=== PATIENT | female | born 1940 | race Caucasian/White ===

== ENCOUNTER 2017-01-18 13:14 | Inpatient (IN) | payer MEDICARE, MEDICAID ==
--- NOTE | 2017-01-18 13:43 | ER Document Report ---
ED Medical Screen (RME) - General Chief Complaint: Shortness Of Breath Stated Complaint: DIFFICULTY BREATHING Notes: Patient is complaining of an increasing shortness of breath and fatigue over the past couple of days. She has a history of COPD and is on home O2 of 3 L/m. She's had some slight cough recently. No fevers. Her difficulty breathing increased today after being shopping at [employer] and walking a lot. Patient has noticed swelling in her left leg for the past several months. It is not been painful. She feels like it's more swollen now than it has been. Patient appears to be comfortable on oxygen at this time. Her heart rate is about 112 and irregular taken by me. TRAVEL OUTSIDE OF THE [place] IN LAST 30 DAYS: No - Related Data Allergies/Adverse Reactions: adhesive tape Allergy (Verified 01/18/17 13:21) Past Medical History - Past Medical History Cardiac Medical History: Reports: Hx Atrial Fibrillation, Hx Hypertension Pulmonary Medical History: Reports: Hx COPD Endocrine Medical History: Reports: Hx Hypothyroidism Renal/ Medical History: Denies: Hx Peritoneal Dialysis Malignancy Medical History: Reports: Hx Breast Cancer - Stage III Musculoskeltal Medical History: Reports Hx Arthritis - Rheumatoid Past Surgical History: Reports: Hx Hysterectomy, Hx Oral Surgery Physical Exam - Vital signs Vitals: Temp Pulse Resp BP Pulse Ox 98.4 F 59 L 34 H 195/88 H 90 L 01/18/17 13:21 01/18/17 13:21 01/18/17 13:21 01/18/17 13:21 01/18/17 13:21 Course - Vital Signs Vital signs: Temp Pulse Resp BP Pulse Ox 98.4 F 59 L 34 H 195/88 H 90 L 01/18/17 13:21 01/18/17 13:21 01/18/17 13:21 01/18/17 13:21 01/18/17 13:21 - Laboratory Result Diagrams: 01/18/17 13:55
[2017-01-18 14:35] LABS: ALANINE AMINOTRANSFERASE 44 U/L (9-52); ALBUMIN 4.5 g/dL (3.5-5.0); ALKALINE PHOSPHATASE 98 U/L (38-126); ANION GAP 12 (5-19); ASPARTATE AMINO TRANSFERASE 43 U/L (14-36); BILIRUBIN,DIRECT 0.1 mg/dL (0.0-0.4); BILIRUBIN,TOTAL 0.5 mg/dL (0.2-1.3); BLOOD UREA NITROGEN 17 mg/dL (7-20); CALCIUM 10.1 mg/dL (8.4-10.2); CARBON DIOXIDE 30 mmol/L (22-30); CHLORIDE 101 mmol/L (98-107); CREATINE KINASE 32 U/L (30-135); CREATININE RESULT 0.54 mg/dL (0.52-1.25); GLUCOSE 113 mg/dL (75-110); POTASSIUM 4.1 mmol/L (3.6-5.0); SODIUM 142.6 mmol/L (137-145); TOTAL PROTEIN 6.7 g/dL (6.3-8.2)
--- NOTE | 2017-01-18 14:50 | ER Document Report ---
ED Respiratory Problem - General Mode of Arrival: Ambulatory Information source: Patient TRAVEL OUTSIDE OF THE [place] IN LAST 30 DAYS: No - HPI Patient complains to provider of: Cough, Short of breath. No: Chest pain Onset: Other - "couple days ago" Context: Hx COPD - oxygen dependent At home treatment: Inhaled steroids, Oral steroids, Oxygen - 3L Associated symptoms: Other - see notes above <AMINA HAYES - Last Filed: 01/18/17 18:21> <GUZMAN WILLOUGHBY - Last Filed: 01/18/17 22:43> - General Chief Complaint: Shortness Of Breath Stated Complaint: DIFFICULTY BREATHING Notes: 76 year old female with history of oxygen dependent (3L) COPD and pneumonia presents to the ED complaining of shortness of breath that started a "couple days ago." Patient additionally complains of a cough and left leg swelling ( "past few months"), and denies any fever or chest pain. Patient reports that she is increasingly short of breath with exertion. Patient is on Levothyroxine, Spiriva, Lasix, and hydrocortisone. Patient's apartment leasing specialist is Dr. Pond. Patient states that she is in mild shortness of breath and is weak currently. Patient is also requesting that her left leg be checked for possible blood clots. (AMINA HAYES) - Related Data Allergies/Adverse Reactions: adhesive tape Allergy (Verified 01/18/17 13:21) Home Medications: Current Home Medications Albuterol Sulfate [Proair HFA] 2 puff IH Q6HP PRN 01/18/17 [History] Furosemide [Furosemide] 20 mg PO DAILY 01/18/17 [History] Hydrocortisone [Hydrocortisone] 5 mg PO DAILY@1500 01/18/17 [History] Hydrocortisone [Hydrocortisone] 10 mg PO QAM 01/18/17 [History] Levothyroxine Sodium [Synthroid] 300 mcg PO DAILY 01/18/17 [History] Liothyronine Sodium 5 mcg PO DAILY 01/18/17 [History] Potassium Chloride 10 meq PO DAILY 01/18/17 [History] Tiotropium [address] [Spiriva Respimat] 2 puff IH DAILY 01/18/17 [History] Past Medical History - General Information source: Patient - Social History Smoking Status: Unknown if Ever Smoked Family History: Reviewed & Not Pertinent Patient has suicidal ideation: No Patient has homicidal ideation: No - Past Medical History Cardiac Medical History: Reports: Hx Atrial Fibrillation, Hx Hypertension Pulmonary Medical History: Reports: Hx COPD, Hx Pneumonia Endocrine Medical History: Reports: Hx Hypothyroidism Renal/ Medical History: Denies: Hx Peritoneal Dialysis Malignancy Medical History: Reports: Hx Breast Cancer - Stage III Musculoskeltal Medical History: Reports Hx Arthritis - Rheumatoid Past Surgical History: Reports: Hx Hysterectomy, Hx Oral Surgery <AMINA HAYES - Last Filed: 01/18/17 18:21> Review of Systems - Review of Systems Constitutional: See HPI, Weakness. denies: Fever EENT: No symptoms reported Cardiovascular: No symptoms reported. denies: Chest pain Respiratory: See HPI, Cough, Short of breath Gastrointestinal: No symptoms reported Genitourinary: No symptoms reported Female Genitourinary: No symptoms reported Musculoskeletal: See HPI, Leg swelling - left Skin: No symptoms reported Hematologic/Lymphatic: No symptoms reported Neurological/Psychological: No symptoms reported -: Yes All other systems reviewed and negative <AMINA HAYES - Last Filed: 01/18/17 18:21> Physical Exam - General General appearance: Alert In distress: None - HEENT Head: Normocephalic, Atraumatic Eyes: Normal Extraocular movements intact: Yes Pupils: PERRL - Respiratory Respiratory status: No respiratory distress Breath sounds: Decreased air movement - bilaterally, Wheezing - expiratory wheeze bilaterally. No: Normal - Cardiovascular Rhythm: Regular Heart sounds: Normal auscultation - Abdominal Inspection: Normal Distension: No distension Tenderness: Nontender - Back Back: Normal - Extremities General upper extremity: Normal inspection, Normal ROM General lower extremity: Edema - 1+ pitting edema left lower extremity, Normal ROM. No: Normal inspection - Neurological Neuro grossly intact: Yes Cognition: Normal Orientation: AAOx4 Opal Coma Scale Eye Opening: Spontaneous Opal Coma Scale Verbal: Oriented Banks Coma Scale Motor: Obeys Commands Banks Coma Scale Total: 15 Speech: Normal - Psychological Associated symptoms: Normal affect, Normal mood - Skin Skin Temperature: Warm Skin Moisture: Dry Skin Color: Normal <AMINA HAYES - Last Filed: 01/18/17 18:21> Course - Laboratory Result Diagrams: 01/18/17 16:11 01/18/17 13:55 - Consults Dr. Altman Time consulted: 17:46 <AMINA HAYES - Last Filed: 01/18/17 18:21> - Laboratory Result Diagrams: 01/18/17 16:11 01/18/17 13:55 <GUZMAN WILLOUGHBY - Last Filed: 01/18/17 22:43> - Re-evaluation Re-evalutation: 01/18/17 Patient is a 76-year-old female who comes in with difficulty breathing. The patient has a history of COPD. She is on oxygen at home and has been using nebulizers. The patient has had increased dyspnea with exertion and leg swelling. The patient denies any chest pain. Patient has been given nebulizer treatments. Doppler of left lower extremity does not show any sign of clot. Patient does have an elevated BNP and she does have some crackles at her bases. Patient does not have an old echocardiogram to review. No acute changes on EKG. Troponin within normal limits. Patient will be referred to the hospital service for respiratory distress, COPD exacerbation, and possible new onset heart failure. Patient agrees with this plan. Stable at time of admission. Of note I have discussed placing the patient on BiPAP. Patient states that she is very claustrophobic and she does not want to be placed on BiPAP at this time. (GUZMAN WILLOUGHBY) - Vital Signs Vital signs: Temp Pulse Resp BP Pulse Ox 98.4 F 59 L 32 H 182/114 H 92 01/18/17 13:21 01/18/17 13:21 01/18/17 17:01 01/18/17 15:14 01/18/17 17:01 - Laboratory Laboratory results interpreted by me: 01/18/17 01/18/17 01/18/17 13:55 14:35 16:11 RBC 5.35 H RDW 15.4 H Glucose 113 H AST 43 H NT-Pro-B Natriuret Pep TSH Free T4 Urine Ascorbic Acid 40 H 01/18/17 01/18/17 16:11 16:11 RBC RDW Glucose AST NT-Pro-B Natriuret Pep 2390 H TSH < 0.02 L Free T4 3.08 H Urine Ascorbic Acid - Consults Dr. Altman Reason for consultation: 01/18/17 17:46 Patient was discussed with Dr. Altman and agrees to admit the patient. (AMINA HAYES) Critical Care Note - Critical Care Note Total time excluding time spent on procedures (mins): 45 - evaluation and management of respiratory distress, multiple re-evaluations, coordination of admission, multiple re-evaluations, counseling of patient <GUZMAN WILLOUGHBY - Last Filed: 01/18/17 22:43> Discharge <AMINA HAYES - Last Filed: 01/18/17 18:21> - Discharge Admitting Provider: [facility] Admitted: [facility] <GUZMAN WILLOUGHBY - Last Filed: 01/18/17 22:43> - Discharge Clinical Impression: COPD exacerbation, Hypoxemia Condition: Stable Disposition: ADMITTED INPATIENT Scribe Attestation: 01/18/17 22:43 I personally performed the services described in the documentation, reviewed and edited the documentation which was dictated to the scribe in my presence, and it accurately records my words and actions. (GUZMAN WILLOUGHBY) Scribe Documentation - Scribe Written by Rocky:: Rocky Shah, 01/18/2017 1521 acting as scribe for :: Parth <AMINA HAYES - Last Filed: 01/18/17 18:21>
[2017-01-18] MEDS ORDERED: IPRATROPIUM/ALBUTEROL 0.5-2.5 MG/3 ML AMPUL NEB ONE ×2 (14:51→17:48)
[2017-01-18] MEDS ORDERED: METHYLPREDNISOLONE INJ 125 MG/2 ML SDV IV ONE (14:52)
[2017-01-18 16:23] LABS: ABSOLUTE BASOPHILS # (AUTO) 0.1 10^3/uL (0.0-0.2); ABSOLUTE EOSINOPHILS # (AUTO) 0.2 10^3/uL (0.0-0.6); ABSOLUTE LYMPHOCYTES (AUTO) 1.4 10^3/uL (0.5-4.7); ABSOLUTE MONOCYTES (AUTO) 0.6 10^3/uL (0.1-1.4); ABSOLUTE NEUT (AUTO) 5.6 10^3/uL (1.7-8.2); BASOPHILS % (AUTO) 0.9 % (0-2); EOSINOPHILS % (AUTO) 2.8 % (0-6); HEMOGLOBIN 14.4 g/dL (12.0-15.5); HGB HCT DIFFERENCE -0.8; LYMPHOCYTES % (AUTO) 17.8 % (13-45); MEAN CORPUSCULAR HGB CONC 32.8 g/dL (32.0-36.0); MEAN CORPUSCULAR VOLUME 82 fl (80-97); MONOCYTES % (AUTO) 7.4 % (3-13); RED BLOOD COUNT 5.35 10^6/uL (3.72-5.28); RED CELL DISTRIBUTION WIDTH 15.4 % (11.5-14.0); SEGMENTED NEUTROPHILS % (AUTO) 71.1 % (42-78); WHITE BLOOD COUNT 7.9 10^3/uL (4.0-10.5)
[2017-01-18 16:56] LABS: CREATINE KINASE MB 1.96 ng/mL (<4.55); TROPONIN I 0.018 ng/mL
[2017-01-18 17:41] LABS: APPEARANCE,URINE CLOUDY; BILIRUBIN,URINE NEGATIVE (NEGATIVE); GLUCOSE, URINE NEGATIVE (NEGATIVE); KETONES,URINE NEGATIVE (NEGATIVE); LEUKOCYTE ESTERASE,URINE NEGATIVE (NEGATIVE); NITRITE,URINE NEGATIVE (NEGATIVE); PROTEIN,URINE NEGATIVE (NEGATIVE); URINE SPECIFIC GRAVITY 1.009; UROBILINOGEN,URINE NEGATIVE mg/dL (<2.0)
[2017-01-18] MEDS ORDERED: ALPRAZOLAM 0.25 MG TABLET PO ONE (17:51)
[2017-01-18] MEDS: MAGNESIUM SULFATE/D5W 100 ML IV SCH ×2 (18:02→21:24)
[2017-01-18] MEDS ORDERED: ACETAMINOPHEN 325 MG TABLET PO PRN (18:33)
[2017-01-18] MEDS ORDERED: LEVALBUTEROL HCL NEB 1.25 MG/3 ML AMPUL NEB PRN (18:33)
[2017-01-18] MEDS ORDERED: ONDANSETRON HCL INJ/PF 4 MG/2 ML SDV IV PRN (18:39)
[2017-01-18] MEDS ORDERED: HYDRALAZINE HCL INJ/PF 20 MG/1 ML SDV IV PRN (18:43)
--- NOTE | 2017-01-18 19:12 | PDOC H&P ---
History of Present Illness Admission Date/PCP: LORIN GONZALEZ MD Patient complains of: Shortness of breath History of Present Illness: HARSH PATE is a 76 year old female, with chronic hypoxemic respiratory failure, on 3L nasal cannula oxygen at home, COPD, continues to smoke, presents to the hospital with increasing shortness of breath for the past 2 days. The patient has chronic shortness of breath on exertion especially on walking around her house at baseline. She uses home nebulizer and inhalers for her COPD. 4 to past 2-3 days she started to develop intermittent wheezing with associated cough productive of whitish phlegm and subsequent shortness of breath. There is no fever although at times there is mild headache. No sinus congestion or sore throat. Patient developed some chest tightness every time she had shortness of breath. Subsequently she started to develop shortness of breath at rest more and despite of that she went to the grocery where her symptoms got worse. No paroxysmal nocturnal dyspnea, and patient lays in bed on her side most of the time. She noted increasing swelling of her lower extremity as well for the past 2 months. In the emergency room the patient was given steroids and nebulizers, lower extremity venous Doppler was negative for DVT and the patient was referred for admission. Past Medical History Past Medical History: Medication reconciliation pending verifications from the patient's pharmacist Cardiac Medical History: Reports: Atrial Fibrillation, Hypertension Pulmonary Medical History: Reports: Chronic Obstructive Pulmonary Disease (COPD) , Pneumonia Endocrine Medical History: Reports: Hypothyroidism Malignancy Medical History: Reports: Breast Cancer - Stage III Musculoskeltal Medical History: Reports: Arthritis - Rheumatoid, Fibromyalgia Past Surgical History Past Surgical History: Reports: Hysterectomy Social History Information Source: Patient Smoking Status: Current Every Day Smoker Frequency of Alcohol Use: None Hx Recreational Drug Use: No Drugs: None Hx Prescription Drug Abuse: No Family History Family History: Hypertension Parental Family History Reviewed: Yes Children Family History Reviewed: Yes Sibling(s) Family History Reviewed.: Yes Medication/Allergy Home Medications: Devil's Claw Extract [Devil's Claw] 1 cap PO Q7D 06/05/15 Hydrochlorothiazide 1 tab PO DAILY 06/05/15 Levocarnitine Tartrate [Carnitine] 2 cap PO DAILY 06/05/15 Levothyroxine Sodium 1 tab PO DAILY 06/05/15 Magnesium Oxide [Magnesium] 1 cap PO DAILY 06/05/15 Ubidecarenone [Co Q10] 1 cap PO DAILY 06/05/15 Albuterol Sulfate [Albuterol Sulfate 2.5mg/3 mL] 2.5 mg IH QID #30 ml 06/06/15 Doxycycline Hyclate [Vibramycin 100 mg Tablet] 100 mg PO Q12 #20 tablet Prednisone [Deltasone 20 mg Tablet] 20 mg PO BID #15 tablet 06/06/15 Tiotropium [place] [Spiriva Handihaler 18 mcg/dose (30 Dose)] 1 cap IH DAILY # 30 capsule 06/06/15 Budesonide [Pulmicort Neb 0.5 mg/2 ml Ampul] 0.5 mg NEB RTQ12 #60 ampul.neb Allergies/Adverse Reactions: adhesive tape Allergy (Verified 01/18/17 13:21) Review of Systems Constitutional: PRESENT: headache(s) - Occasional, weakness - Generalized. ABSENT: chills, fever(s), weight gain, weight loss Eyes: ABSENT: visual disturbances Ears: ABSENT: hearing changes Nose, Mouth, and Throat: ABSENT: mouth pain, sore throat Cardiovascular: PRESENT: chest pain - More of tightness during wheezing episode , edema - Chronic. ABSENT: dyspnea on exertion, orthropnea, palpitations Respiratory: PRESENT: cough, dyspnea, sputum. ABSENT: hemoptysis Gastrointestinal: ABSENT: abdominal pain, coffee ground emesis, constipation, diarrhea, hematemesis, hematochezia, melena, nausea, vomiting Genitourinary: ABSENT: difficulty urinating, dysuria, hematuria Musculoskeletal: ABSENT: joint swelling Integumentary: ABSENT: pruritus, rash, wounds Neurological: ABSENT: abnormal gait, abnormal speech, confusion, dizziness, focal weakness, syncope Psychiatric: ABSENT: anxiety, depression, homidical ideation, suicidal ideation Endocrine: ABSENT: cold intolerance, heat intolerance, polydipsia, polyuria Hematologic/Lymphatic: ABSENT: easy bleeding, easy bruising Physical Exam Vital Signs: Temp Pulse Resp BP Pulse Ox 98.4 F 59 L 32 H 182/114 H 92 01/18/17 13:21 01/18/17 13:21 01/18/17 17:01 01/18/17 15:14 01/18/17 17:01 Intake & Output 01/17/17 01/18/17 01/19/17 06:59 06:59 06:59 Weight 96.9 kg General appearance: PRESENT: cooperative, mild distress Head exam: PRESENT: atraumatic, normocephalic Eye exam: PRESENT: conjunctiva pink, EOMI, PERRLA - Sluggish. ABSENT: scleral icterus Ear exam: PRESENT: normal external ear exam. ABSENT: drainage Mouth exam: PRESENT: moist, neck supple, tongue midline Throat exam: ABSENT: post pharyngeal erythema, tonsillar erythema Neck exam: ABSENT: carotid bruit, JVD, lymphadenopathy, thyromegaly Respiratory exam: PRESENT: decreased breath sounds, rhonchi - few, wheezes - minimal. ABSENT: rales Cardiovascular exam: PRESENT: irregular rhythm, +S1, +S2. ABSENT: diastolic murmur, rubs, systolic murmur Pulses: PRESENT: normal dorsalis pedis pul Vascular exam: PRESENT: normal capillary refill GI/Abdominal exam: PRESENT: normal bowel sounds, soft. ABSENT: distended, guarding, mass, organolmegaly, rebound, tenderness Rectal exam: PRESENT: deferred Extremities exam: PRESENT: full ROM, +1 edema. ABSENT: calf tenderness, clubbing Neurological exam: PRESENT: alert, awake, oriented to person, oriented to place , oriented to time, oriented to situation Psychiatric exam: PRESENT: appropriate affect, normal mood. ABSENT: homicidal ideation, suicidal ideation Skin exam: PRESENT: dry, intact, warm. ABSENT: cyanosis, jaundice, rash Results Laboratory Results: 01/18/17 16:11 01/18/17 13:55 01/18/17 01/18/17 01/18/17 13:55 14:35 16:11 WBC 7.9 RBC 5.35 H Hgb 14.4 Hct 44.0 MCV 82 MCH 27.0 MCHC 32.8 RDW 15.4 H Plt Count 193 Seg Neutrophils % 71.1 Lymphocytes % 17.8 Monocytes % 7.4 Eosinophils % 2.8 Basophils % 0.9 Absolute Neutrophils 5.6 Absolute Lymphocytes 1.4 Absolute Monocytes 0.6 Absolute Eosinophils 0.2 Absolute Basophils 0.1 Sodium 142.6 Potassium 4.1 Chloride 101 Carbon Dioxide 30 Anion Gap 12 BUN 17 Creatinine 0.54 Est GFR ( Amer) > 60 Est GFR (Non-Af Amer) > 60 Glucose 113 H Calcium 10.1 Total Bilirubin 0.5 AST 43 H ALT 44 Alkaline Phosphatase 98 Total Protein 6.7 Albumin 4.5 Urine Color YELLOW Urine Appearance CLOUDY Urine pH 7.0 Ur Specific [place] 1.009 Urine Protein NEGATIVE Urine Glucose (UA) NEGATIVE Urine Ketones NEGATIVE Urine Blood NEGATIVE Urine Nitrite NEGATIVE Ur Leukocyte Esterase NEGATIVE Urine WBC (Auto) 0 Urine RBC (Auto) 0 01/18/17 01/18/17 13:55 16:11 Creatine Kinase 32 CK-MB (CK-2) 1.96 Troponin I 0.018 NT-Pro-B Natriuret Pep 2390 H Impressions: Chest X-Ray 01/18/17 13:52 IMPRESSION: COPD. No acute findings. Venous Doppler Study 01/18/17 13:52 IMPRESSION: NO EVIDENCE DVT OR SVT IN THE LEFT LEG. Assessment & Plan - Diagnosis (1) Acute on chronic respiratory failure with hypoxemia Is this a current diagnosis for this admission?: Yes (2) COPD exacerbation Is this a current diagnosis for this admission?: Yes (3) Hypertensive urgency Is this a current diagnosis for this admission?: Yes (4) Hypothyroidism (acquired) Is this a current diagnosis for this admission?: Yes (5) Lower extremity edema Qualifiers: Laterality: bilateral Qualified Code(s): R60.0 - Localized edema Is this a current diagnosis for this admission?: Yes (6) Fibromyalgia Is this a current diagnosis for this admission?: Yes (7) Osteoarthritis Qualifiers: Osteoarthritis location: unspecified site Osteoarthritis type: unspecified Qualified Code(s): M19.90 - Unspecified osteoarthritis, unspecified site Is this a current diagnosis for this admission?: Yes - Time Time Spent: 50 to 70 Minutes - Inpatient Certification Based on my medical assessment, after consideration of the patient's comorbidities, presenting symptoms, or acuity I expect that the services needed warrant INPATIENT care.: Yes I certify that my determination is in accordance with my understanding of Medicare's requirements for reasonable and necessary INPATIENT services [42 CFR 412.3e].: Yes Medical Necessity: Significant Comorbidiites Make Outpatient Treatment Too Risky , Need Close Monitoring Due to Risk of Patient Decompensation, Need For Continuous Telemetry Monitoring, Need for Nebulizer Therapy and Monitoring of Response, Risk of Complication if Not Cared For in Hospital Post Hospital Care: D/C Favor Maker Documentation - Plan Summary Plan Summary: The patient will be admitted to [facility]. She will be placed on supplemental oxygen , begin intravenous steroids and [id number] nebulizers. We are going to culture her sputum. In the meantime I will begin the patient on intravenous diuretic and obtain an echocardiogram. Nitroglycerin paste will be administered and as needed IV hydralazine for systolic blood pressure greater than 180. DVT prophylaxis with Lovenox will be placed. We will monitor electrolytes. Further testing depends on initial evaluation as outlined above.
[2017-01-18] MEDS ORDERED: NITROGLYCERIN 2% OINTMENT 1 GM PACKET TP ONE (19:30)
[2017-01-18 20:34] LABS: THYROID STIMULATING HORMONE < 0.02 uIU/mL (0.47-4.68)
[2017-01-18] MEDS: METHYLPREDNISOLONE INJ 125 MG/2 ML SDV IV SCH (21:25)
[2017-01-18] MEDS: IPRATROPIUM BROMIDE 0.02% NEB 0.5 MG/2.5 ML AMPUL NEB SCH (21:26)
[2017-01-18] MEDS: LEVALBUTEROL HCL NEB 1.25 MG/3 ML AMPUL NEB SCH (21:26)
[2017-01-18] MEDS: FUROSEMIDE INJ/PF 40 MG/4 ML SDV IV SCH (22:16)
[2017-01-18 22:34] LABS: CREATINE KINASE MB 2.75 ng/mL (<4.55); TROPONIN I 0.024 ng/mL
[2017-01-19] MEDS: IPRATROPIUM BROMIDE 0.02% NEB 0.5 MG/2.5 ML AMPUL NEB SCH ×5 (00:55→20:38)
[2017-01-19] MEDS: LEVALBUTEROL HCL NEB 1.25 MG/3 ML AMPUL NEB SCH ×5 (00:55→20:38)
[2017-01-19] MEDS: METHYLPREDNISOLONE INJ 125 MG/2 ML SDV IV SCH ×4 (03:40→21:22)
[2017-01-19 04:50] LABS: BLOOD UREA NITROGEN 14 mg/dL (7-20); CALCIUM 9.4 mg/dL (8.4-10.2); CARBON DIOXIDE 27 mmol/L (22-30); CHLORIDE 103 mmol/L (98-107); CREATININE RESULT 0.47 mg/dL (0.52-1.25); GLUCOSE 187 mg/dL (75-110)
[2017-01-19 04:51] LABS: ANION GAP 12 (5-19); CREATINE KINASE 33 U/L (30-135); SODIUM 142.1 mmol/L (137-145)
[2017-01-19 04:59] LABS: POTASSIUM 3.1 mmol/L (3.6-5.0)
[2017-01-19 05:03] LABS: CREATINE KINASE MB 2.65 ng/mL (<4.55); TROPONIN I 0.034 ng/mL
[2017-01-19] MEDS: NITROGLYCERIN 2% OINTMENT 1 GM PACKET TP SCH ×4 (05:49→17:20)
--- NOTE | 2017-01-19 06:19 | EKG REPORT ---
SEVERITY:- BORDERLINE ECG - SINUS TACHYCARDIA WITH FREQUENT APCs LEFT AXIS DEVIATION : Confirmed by: Leah Guerra 19-Jan-2017 06:18:58
[2017-01-19] MEDS: LANSOPRAZOLE 30 MG TAB.RAP.DR PO SCH (06:36)
[2017-01-19] MEDS ORDERED: LEVOTHYROXINE SODIUM 0.05 MG TABLET PO SCH (08:00)
[2017-01-19] MEDS: ASPIRIN 81 MG TABLET, CHEWABLE PO SCH (08:35)
[2017-01-19] MEDS: DOCUSATE SODIUM 100 MG CAPSULE PO SCH ×2 (08:36→17:20)
[2017-01-19] MEDS: FUROSEMIDE INJ/PF 40 MG/4 ML SDV IV SCH (08:37)
[2017-01-19] MEDS: ENOXAPARIN SODIUM INJ 40 MG/0.4 ML DISP.SYRIN SUBCUT SCH (08:38)
[2017-01-19] MEDS ORDERED: METOPROLOL TARTRATE PF/INJ 5 MG/5 ML SDV IV ONE (09:54)
[2017-01-19] MEDS ORDERED: BENZOCAINE/MENTHOL SORE THROAT LOZENGE BUCCAL PRN (11:09)
[2017-01-19 11:10] LABS: CREATINE KINASE MB 2.51 ng/mL (<4.55); TROPONIN I 0.034 ng/mL
--- NOTE | 2017-01-19 11:15 | PDOC PROGRESS REPORT ---
Subjective Progress Note for:: 01/19/17 Subjective:: Patient's shortness of breath is better. Coughing is less. Wheezing is less. Lower extremity edema is unchanged. Denies any chills or fever. Patient reportedly tachycardic on the monitor. Cardiac enzymes remain negative. Physical Exam Vital Signs: Temp Pulse Resp BP Pulse Ox 98.5 F 105 H 20 138/91 H 91 L 01/19/17 08:00 01/19/17 08:37 01/19/17 08:37 01/19/17 08:00 01/19/17 08:37 Intake & Output 01/18/17 01/19/17 01/20/17 06:59 06:59 06:59 Intake Total 10 Output Total 900 Balance -890 Weight 87 kg General appearance: PRESENT: no acute distress, obese Head exam: PRESENT: normocephalic Eye exam: PRESENT: EOMI Mouth exam: PRESENT: moist, neck supple Neck exam: ABSENT: JVD Respiratory exam: PRESENT: decreased breath sounds. ABSENT: rhonchi, wheezes Cardiovascular exam: PRESENT: RRR. ABSENT: gallop GI/Abdominal exam: PRESENT: normal bowel sounds, soft. ABSENT: tenderness Extremities exam: PRESENT: +1 edema Neurological exam: PRESENT: alert, awake, oriented to situation Skin exam: PRESENT: dry, warm. ABSENT: cyanosis Results Laboratory Results: 01/19/17 04:15 01/19/17 04:15 Sodium 142.1 Potassium 3.1 L D Chloride 103 Carbon Dioxide 27 Anion Gap 12 BUN 14 Creatinine 0.47 L Est GFR ( Amer) > 60 Est GFR (Non-Af Amer) > 60 Glucose 187 H Calcium 9.4 01/18/17 01/19/17 01/19/17 22:00 04:15 04:15 Creatine Kinase 33 CK-MB (CK-2) 2.75 2.65 Troponin I 0.024 0.034 01/19/17 10:15 Creatine Kinase 31 CK-MB (CK-2) Troponin I Impressions: Chest X-Ray 01/18/17 13:52 IMPRESSION: COPD. No acute findings. Venous Doppler Study 01/18/17 13:52 IMPRESSION: NO EVIDENCE DVT OR SVT IN THE LEFT LEG. Assessment & Plan - Diagnosis (1) Acute on chronic respiratory failure with hypoxemia Is this a current diagnosis for this admission?: Yes (2) COPD exacerbation Is this a current diagnosis for this admission?: Yes (3) Hypertensive urgency Is this a current diagnosis for this admission?: Yes (4) Hypothyroidism (acquired) Is this a current diagnosis for this admission?: Yes (5) Lower extremity edema Qualifiers: Laterality: bilateral Qualified Code(s): R60.0 - Localized edema Is this a current diagnosis for this admission?: Yes (6) Fibromyalgia Is this a current diagnosis for this admission?: Yes (7) Osteoarthritis Qualifiers: Osteoarthritis location: unspecified site Osteoarthritis type: unspecified Qualified Code(s): M19.90 - Unspecified osteoarthritis, unspecified site Is this a current diagnosis for this admission?: Yes - Time Time Spent with patient: 25-34 minutes - Plan Summary Plan Summary: We are going to begin beta ángel with metoprolol. Decrease dose of Synthroid. Replace electrolytes and monitor. Continue steroids, decrease Atrovent, and Xopenex dose. Continue to monitor. Continue supportive care.
[2017-01-19] MEDS: POTASSIUM CHLORIDE 10 MEQ TABLET.SA PO SCH ×2 (13:31→17:21)
[2017-01-19] MEDS: METOPROLOL TARTRATE 25 MG TABLET PO SCH ×2 (13:32→17:18)
[2017-01-20] MEDS: METOPROLOL TARTRATE 25 MG TABLET PO SCH ×3 (01:09→18:00)
[2017-01-20] MEDS: NITROGLYCERIN 2% OINTMENT 1 GM PACKET TP SCH ×4 (01:11→17:57)
[2017-01-20] MEDS: IPRATROPIUM BROMIDE 0.02% NEB 0.5 MG/2.5 ML AMPUL NEB SCH ×4 (02:24→20:45)
[2017-01-20] MEDS: LEVALBUTEROL HCL NEB 1.25 MG/3 ML AMPUL NEB SCH ×4 (02:24→20:45)
[2017-01-20] MEDS: METHYLPREDNISOLONE INJ 125 MG/2 ML SDV IV SCH ×2 (05:51→08:42)
[2017-01-20] MEDS: LANSOPRAZOLE 30 MG TAB.RAP.DR PO SCH (05:51)
[2017-01-20 06:24] LABS: ANION GAP 10 (5-19); BLOOD UREA NITROGEN 32 mg/dL (7-20); CALCIUM 9.4 mg/dL (8.4-10.2); CARBON DIOXIDE 28 mmol/L (22-30); CHLORIDE 102 mmol/L (98-107); CREATININE RESULT 0.57 mg/dL (0.52-1.25); GLUCOSE 141 mg/dL (75-110); POTASSIUM 3.9 mmol/L (3.6-5.0); SODIUM 140.3 mmol/L (137-145)
[2017-01-20] MEDS: ENOXAPARIN SODIUM INJ 40 MG/0.4 ML DISP.SYRIN SUBCUT SCH (08:43)
[2017-01-20] MEDS: ASPIRIN 81 MG TABLET, CHEWABLE PO SCH (08:43)
[2017-01-20] MEDS: LEVOTHYROXINE SODIUM 0.025 MG TABLET PO SCH (08:43)
[2017-01-20] MEDS: DOCUSATE SODIUM 100 MG CAPSULE PO SCH ×2 (08:43→17:57)
[2017-01-20] MEDS ORDERED: FUROSEMIDE INJ/PF 40 MG/4 ML SDV IV SCH (10:00)
--- NOTE | 2017-01-20 10:30 | PDOC PROGRESS REPORT ---
Subjective Progress Note for:: 01/20/17 Subjective:: Patient clinically improved today. Able to ambulate without significant shortness of breath now. Will have intermittent tachycardia but better than presentation. No nausea or vomiting, no chest pain, no diarrhea chills nor fever. Physical Exam Vital Signs: Temp Pulse Resp BP Pulse Ox 98.1 F 79 16 139/88 H 98 01/20/17 07:40 01/20/17 08:33 01/20/17 08:33 01/20/17 07:40 01/20/17 08:33 Intake & Output 01/19/17 01/20/17 01/21/17 06:59 06:59 06:59 Intake Total 10 1194 Output Total 900 1400 Balance -890 -206 Weight 87 kg 85.7 kg General appearance: PRESENT: no acute distress, cooperative Head exam: PRESENT: normocephalic Eye exam: PRESENT: EOMI Mouth exam: PRESENT: moist, neck supple Neck exam: ABSENT: JVD Respiratory exam: PRESENT: clear to auscultation vikram. ABSENT: rhonchi, wheezes Cardiovascular exam: PRESENT: RRR. ABSENT: gallop GI/Abdominal exam: PRESENT: normal bowel sounds, soft. ABSENT: distended Extremities exam: PRESENT: +1 edema - Unchanged Neurological exam: PRESENT: alert, awake, oriented to situation Skin exam: PRESENT: dry, warm. ABSENT: cyanosis Results Laboratory Results: 01/20/17 05:34 01/20/17 05:34 Sodium 140.3 Potassium 3.9 Chloride 102 Carbon Dioxide 28 Anion Gap 10 BUN 32 H Creatinine 0.57 Est GFR ( Amer) > 60 Est GFR (Non-Af Amer) > 60 Glucose 141 H Calcium 9.4 01/18/17 01/19/17 01/19/17 22:00 04:15 04:15 Creatine Kinase 33 CK-MB (CK-2) 2.75 2.65 Troponin I 0.024 0.034 01/19/17 01/19/17 10:15 10:15 Creatine Kinase 31 CK-MB (CK-2) 2.51 Troponin I 0.034 Impressions: Chest X-Ray 01/18/17 13:52 IMPRESSION: COPD. No acute findings. Venous Doppler Study 01/18/17 13:52 IMPRESSION: NO EVIDENCE DVT OR SVT IN THE LEFT LEG. Assessment & Plan - Diagnosis (1) Acute on chronic respiratory failure with hypoxemia Is this a current diagnosis for this admission?: Yes (2) COPD exacerbation Is this a current diagnosis for this admission?: Yes (3) Hypertensive urgency Is this a current diagnosis for this admission?: Yes (4) Hypothyroidism (acquired) Is this a current diagnosis for this admission?: Yes (5) Lower extremity edema Qualifiers: Laterality: bilateral Qualified Code(s): R60.0 - Localized edema Is this a current diagnosis for this admission?: Yes (6) Fibromyalgia Is this a current diagnosis for this admission?: Yes (7) Osteoarthritis Qualifiers: Osteoarthritis location: unspecified site Osteoarthritis type: unspecified Qualified Code(s): M19.90 - Unspecified osteoarthritis, unspecified site Is this a current diagnosis for this admission?: Yes - Time Time Spent with patient: 15-24 minutes - Plan Summary Plan Summary: Continue bronchodilators. Discontinue IV Solu-Medrol. Begin oral prednisone. Discontinue intravenous Lasix. Begin Demadex. Awaiting echocardiogram. Continue supportive care. The patient is stable and improving the morning, we will discharge patient home.
[2017-01-20] MEDS ORDERED: TORSEMIDE 20 MG TABLET PO ONE (11:45)
[2017-01-20] MEDS: PREDNISONE 20 MG TABLET PO SCH (11:58)
[2017-01-20] MEDS ORDERED: METOPROLOL TARTRATE 50 MG TABLET ONE (17:57)
[2017-01-21] MEDS: NITROGLYCERIN 2% OINTMENT 1 GM PACKET TP SCH ×4 (00:39→18:18)
[2017-01-21] MEDS: IPRATROPIUM BROMIDE 0.02% NEB 0.5 MG/2.5 ML AMPUL NEB SCH ×3 (02:14→14:14)
[2017-01-21] MEDS: LEVALBUTEROL HCL NEB 1.25 MG/3 ML AMPUL NEB SCH ×3 (02:14→14:14)
[2017-01-21] MEDS: LANSOPRAZOLE 30 MG TAB.RAP.DR PO SCH (05:57)
[2017-01-21] MEDS ORDERED: TORSEMIDE 20 MG TABLET PO SCH (08:00)
[2017-01-21 09:10] LABS: AMORPHOUS SEDIMENT,URINE TRACE /HPF; APPEARANCE,URINE CLOUDY; BILIRUBIN,URINE NEGATIVE (NEGATIVE); GLUCOSE, URINE NEGATIVE (NEGATIVE); KETONES,URINE NEGATIVE (NEGATIVE); LEUKOCYTE ESTERASE,URINE LARGE (NEGATIVE); NITRITE,URINE NEGATIVE (NEGATIVE); PROTEIN,URINE 100 mg/dL (NEGATIVE); TRIPLE PHOSPHATE CRYSTAL,URINE TOO NUMEROUS TO CNT /HPF; UROBILINOGEN,URINE NEGATIVE mg/dL (<2.0)
[2017-01-21] MEDS: METOPROLOL TARTRATE 25 MG TABLET PO SCH (11:08)
[2017-01-21] MEDS: DOCUSATE SODIUM 100 MG CAPSULE PO SCH ×2 (11:09→18:18)
[2017-01-21] MEDS: PREDNISONE 20 MG TABLET PO SCH (11:09)
[2017-01-21] MEDS: LEVOTHYROXINE SODIUM 0.025 MG TABLET PO SCH (11:09)
[2017-01-21] MEDS: ASPIRIN 81 MG TABLET, CHEWABLE PO SCH (11:09)
[2017-01-21] MEDS: ENOXAPARIN SODIUM INJ 40 MG/0.4 ML DISP.SYRIN SUBCUT SCH (11:10)
--- NOTE | 2017-01-21 17:32 | PDOC DISCHARGE SUMMARY ---
General - Admit/Disc Date/PCP Admission Date/Primary Care Provider: 01/18/17 18:34 LORIN GONZALEZ MD Discharge Date: 01/21/17 - Discharge Diagnosis (1) Acute on chronic respiratory failure with hypoxemia Is this a current diagnosis for this admission?: Yes (2) COPD exacerbation Is this a current diagnosis for this admission?: Yes (3) Hypertensive urgency Is this a current diagnosis for this admission?: Yes (4) Hypothyroidism (acquired) Is this a current diagnosis for this admission?: Yes (5) Lower extremity edema Is this a current diagnosis for this admission?: Yes (6) Urinary tract infection Is this a current diagnosis for this admission?: Yes (7) Fibromyalgia Is this a current diagnosis for this admission?: Yes (8) Osteoarthritis Is this a current diagnosis for this admission?: Yes - Additional Information Discharge Diet: Cardiac - low-fat low-salt Discharge Activity: Activity As Tolerated, Balance Activity w/Rest, Slowly Increase Activity Home Medications: Albuterol Sulfate [Proair HFA] 2 puff IH Q6HP PRN 01/18/17 Hydrocortisone 5 mg PO DAILY@1500 01/18/17 Hydrocortisone 10 mg PO QAM 01/18/17 Potassium Chloride 10 meq PO DAILY 01/18/17 Tiotropium [place] [Spiriva Respimat] 2 puff IH DAILY 01/18/17 Aspirin [Aspirin 81 mg Chewable Tablet] 81 mg PO DAILY tab.chew 01/21/17 Levofloxacin [Levaquin 750 mg Tablet] 750 mg PO DAILY #7 tablet 01/21/17 Levothyroxine Sodium [Synthroid 0.025 mg Tablet] 0.025 mg PO QAM #30 tablet 07/30 Metoprolol Tartrate [Lopressor 25 mg Tablet] 50 mg PO Q12 #60 tablet 01/21/17 Torsemide [Demadex 20 mg Tablet] 10 mg PO QAM #30 tablet 01/21/17 Additional Information: Follow-up final report on urine culture as outpatient with primary care physician. History of Present Illness Patient complains of: Shortness of breath History of Present Illness: HARSH PATE is a 76 year old female, with chronic hypoxemic respiratory failure, on 3L nasal cannula oxygen at home, COPD, continues to smoke, presents to the hospital with increasing shortness of breath for the past 2 days. The patient has chronic shortness of breath on exertion especially on walking around her house at baseline. She uses home nebulizer and inhalers for her COPD. 4 to past 2-3 days she started to develop intermittent wheezing with associated cough productive of whitish phlegm and subsequent shortness of breath. There is no fever although at times there is mild headache. No sinus congestion or sore throat. Patient developed some chest tightness every time she had shortness of breath. Subsequently she started to develop shortness of breath at rest more and despite of that she went to the grocery where her symptoms got worse. No paroxysmal nocturnal dyspnea, and patient lays in bed on her side most of the time. She noted increasing swelling of her lower extremity as well for the past 2 months. In the emergency room the patient was given steroids and nebulizers, lower extremity venous Doppler was negative for DVT and the patient was referred for admission. Hospital Course Hospital Course: The patient was admitted to [facility]. She was started on intravenous steroids, [id number] nebulizers. Supplemental oxygen was given. She also complains of some chest tightness and serial cardiac enzymes were negative for myocardial infarction. EKG shows no acute ST-T wave changes. She was initially patient aspirin and likewise nitroglycerin . Patient significantly improved after the next day however she was tachycardic. She was placed on metoprolol for blood pressure control, as well as Demadex. Patient's lower extremity edema improved, heart rate likewise improved, blood pressure improved. Free T4 was noted to be elevated, therefore her supplemental Synthroid was decreased to half the dose. The patient subsequently improved, course was noted for abnormal urinalysis likely urinary tract infection, she was given antibiotics. Patient may have underlying bronchitis as well therefore she will continue the antibiotics for a week. She wanted to go home and discontinue treatment on an outpatient basis. She requests home health, supervisor public health nursing, and personal care services. She has chronic respiratory failure and is on home oxygen already. She was advised to return to the emergency room symptoms recur or worsens. She was advised to see her physician in one week. She likewise is on chronic steroids with hydrocortisone at home. Physical Exam Vital Signs: Temp Pulse Resp BP Pulse Ox 97.9 F 82 16 142/82 H 96 01/21/17 07:29 01/21/17 14:14 01/21/17 14:14 01/21/17 07:29 01/21/17 14:14 Intake & Output 01/20/17 01/21/17 01/22/17 06:59 06:59 06:59 Intake Total 1194 885 720 Output Total 1400 1600 Balance -206 -715 720 Weight 85.7 kg 86.1 kg General appearance: PRESENT: no acute distress, cooperative, other - Nasal cannula oxygen Head exam: PRESENT: normocephalic Eye exam: PRESENT: EOMI Mouth exam: PRESENT: moist, neck supple Neck exam: ABSENT: JVD Respiratory exam: PRESENT: decreased breath sounds. ABSENT: rhonchi, wheezes Cardiovascular exam: PRESENT: RRR. ABSENT: gallop GI/Abdominal exam: PRESENT: normal bowel sounds, soft. ABSENT: tenderness Extremities exam: PRESENT: +1 edema - Improved Neurological exam: PRESENT: alert, awake, oriented to person, oriented to place , oriented to time, oriented to situation Skin exam: PRESENT: dry, warm. ABSENT: cyanosis Results Laboratory Results: 01/20/17 05:34 01/21/17 08:30 Urine Color YELLOW Urine Appearance CLOUDY Urine pH 9.0 Ur Specific [place] 1.020 Urine Protein 100 H Urine Glucose (UA) NEGATIVE Urine Ketones NEGATIVE Urine Blood SMALL H Urine Nitrite NEGATIVE Ur Leukocyte Esterase LARGE H Urine WBC (Auto) 11 Urine RBC (Auto) 21 01/18/17 01/19/17 01/19/17 22:00 04:15 04:15 Creatine Kinase 33 CK-MB (CK-2) 2.75 2.65 Troponin I 0.024 0.034 01/19/17 01/19/17 10:15 10:15 Creatine Kinase 31 CK-MB (CK-2) 2.51 Troponin I 0.034 Impressions: Chest X-Ray 01/18/17 13:52 IMPRESSION: COPD. No acute findings. Venous Doppler Study 01/18/17 13:52 IMPRESSION: NO EVIDENCE DVT OR SVT IN THE LEFT LEG. Qualifiers PATEINT BEING DISCHARGED WITH ANY OF THE FOLLOWING DIAGNOSIS?: No Plan Discharge Plan: Follow-up with primary care physician in one week. Time Spent: Less than 30 Minutes
[2017-01-21] MEDS ORDERED: CEFTRIAXONE 1 GM/D5W RTU 1 GM/50 ML RTUPB IV ONE (18:30)
[2017-01-21 18:39] VITALS: BP 135/81
--- NOTE | 2017-01-22 13:16 | XCELERA REPORT ---
[address] [address] Transthoracic Echocardiogram Report Name: HARSH PATE Age: 76 yrs Gender: Female : 1940 Patient Status: Inpatient Patient Location: [id number]\S\334\S\A Study Date: 01/21/2017 09:34 AM Height: 61 in Weight: 213 lb BSA: 1.9 m2 Procedure: A two-dimensional transthoracic echocardiogram with color flow and Doppler was performed. Study Quality: Technically suboptimal. Reason For Study: CHF / PULMONARY HYPERTENSION History: CHF / PULMONARY HYPERTENSION. Ordering Physician: BLAYNE GARCIA Performed By: Priyanka Perez Interpretation Summary The left ventricle is normal in size. There is normal left ventricular wall thickness. LV EF is > than 60% Left ventricular systolic function is normal. Doppler measurements suggest impaired left ventricular relaxation, which is associated with grade I/IV or mild diastolic dysfunction The left ventricular wall motion is normal. There is no thrombus. The right ventricle is grossly normal size. The right ventricle is not well visualized secondary to technical limitations The left atrium is moderately dilated. There is no evidence of mitral valve prolapse. There is no mitral valve stenosis. Probably milld to moderate MR. There is no aortic valve stenosis There is no LVOT obstruction. No aortic regurgitation is present. There is no tricuspid stenosis. There is a trace amount of tricuspid regurgitation Right ventricular systolic pressure is normal. RVSP is normal at 26 mm of Hg , with RA mean of 5. There is no pericardial effusion. MMode/2D Measurements \T\ Calculations RVDd: 2.8 cm LVIDd: 4.5 cm FS: 35.7 % Ao root diam: 3.3 cm IVSd: 0.92 cm LVIDs: 2.9 cm EDV(Teich): 94.8 ml LVPWd: 0.98 cmESV(Teich): 32.9 ml Ao root area: 8.3 cm2 EF(Teich): 65.3 % LA dimension: 4.5 cm LVOT diam: 2.0 cm LVOT area: 3.0 cm2 Doppler Measurements \T\ Calculations MV E max antonio: MV P1/2t max antonio: Ao V2 max: LV V1 max P.0 cm/sec 74.0 cm/sec 129.2 cm/sec 3.9 mmHg MV A max antonio: MV P1/2t: 53.7 msec Ao max PG: LV V1 max: 88.4 cm/sec MVA(P1/2t): 4.1 cm2 6.7 mmHg 98.7 cm/sec MV E/A: 0.84 MV dec slope: POLLY(V,D): 2.3 cm2 404.1 cm/sec2 PA V2 max: TR max antonio: 54.8 cm/sec 226.9 cm/sec PA max PG: TR max P.6 mmHg 1.2 mmHg Left Ventricle The left ventricle is normal in size. There is normal left ventricular wall thickness. LV EF is > than 60%. Left ventricular systolic function is normal. Doppler measurements suggest impaired left ventricular relaxation, which is associated with grade I/IV or mild diastolic dysfunction. The left ventricular wall motion is normal. There is no thrombus. Right Ventricle The right ventricle is grossly normal size. The right ventricle is not well visualized secondary to technical limitations. Atria The right atrium is normal. The left atrium is moderately dilated. Mitral Valve There is mild mitral annular calcification. There is no evidence of mitral valve prolapse. There is no vegetation seen on the mitral valve. There is no mitral valve stenosis. Probably milld to moderate MR. Aortic Valve There is no aortic valvular vegetation. There is no aortic valve stenosis. There is no LVOT obstruction. No aortic regurgitation is present. Tricuspid Valve There is no tricuspid stenosis. There is a trace amount of tricuspid regurgitation. Right ventricular systolic pressure is normal. RVSP is normal at 26 mm of Hg , with RA mean of 5. Pulmonic Valve There is no pulmonic valvular stenosis. There is no pulmonic valvular regurgitation. Great Vessels The aortic root is not well visualized but is probably normal size. Effusions There is no pericardial effusion. : BLAYNE GARCIA > Nohemy Brenner
[2017-01-22] MEDS ORDERED: CEFTRIAXONE 1 GM/D5W RTU 1 GM/50 ML RTUPB IV SCH (18:00)
== END 2017-01-21 19:33 | disposition home or self-care (01) | DRG 190 ==
LOC: ER 13:14 → EH 18:34 → UNDOADMIN 20:38 → EH 20:38 → 3S 01-19 02:24
PROVIDERS: ADMIT Family Medicine; ATTEND Family Medicine
PROC: 3E0F73Z Introduction of Anti-inflammatory into Respiratory Tract, Via Natural or Artificial Opening (ICD-10-PCS; principal; 2017-01-18)
DX: J44.1 Chronic obstructive pulmonary disease with (acute) exacerbation (principal); J96.21 Acute and chronic respiratory failure with hypoxia; N39.0 Urinary tract infection, site not specified; I16.0 Hypertensive urgency; E03.9 Hypothyroidism, unspecified; M79.7 Fibromyalgia; M19.90 Unspecified osteoarthritis, unspecified site; F17.200 Nicotine dependence, unspecified, uncomplicated; M06.9 Rheumatoid arthritis, unspecified; I48.91 Unspecified atrial fibrillation; Z99.81 Dependence on supplemental oxygen; Z79.899 Other long term (current) drug therapy; Z79.52 Long term (current) use of systemic steroids; Z85.3 Personal history of malignant neoplasm of breast; Z90.710 Acquired absence of both cervix and uterus
CPT/HCPCS: 36415; 71020; 80048; 80053; 81001; 82550; 82553; 82962; 83880; 84439; 84443; 84484; 85025; 87086; 87088; 87186; 93005; 93010; 93306; 93971; 94640; 96365; 96375; 99291; J0696; J1650; J1940; J2930; J3475; J3490; J7512; J7620

== ENCOUNTER 2017-05-01 16:25 | Emergency (ER) | payer MEDICARE, MEDICAID ==
--- NOTE | 2017-05-01 18:21 | RADIOLOGY REPORT (SQ) ---
EXAM DESCRIPTION: CT HEAD WITHOUT COMPLETED DATE/TIME: 05/01/2017 6:09 pm REASON FOR STUDY: confusion, posterior pain COMPARISON: None. TECHNIQUE: Axial images acquired through the brain without intravenous contrast. Images reviewed wi th bone, brain and subdural windows. Images stored on PACS. All CT scanners at this facility use dose modulation, iterative reconstruction, and/or weight based d osing when appropriate to reduce radiation dose to as low as reasonably achievable (ALARA). [facility]: Dose Right [facility]: CareDose [facility]: Dose Right [facility]: Teradose 4D [facility]: Smart [employer] RADIATION DOSE: Up-to-date CT equipment and radiation dose reduction techniques were employed. CTDIv ol: 64.6 mGy. DLP: 1034 mGy-cm.mGy. LIMITATIONS: None. FINDINGS: VENTRICLES: Prominent. CEREBRUM: No masses. No hemorrhage. No midline shift. Areas of low density in the white matter mos t likely due to chronic micro-vascular ischemic change. No evidence for acute infarction. CEREBELLUM: No masses. No hemorrhage. No alteration of density. No evidence for acute infarction. EXTRAAXIAL SPACES: Age-related involutional change. No fluid collections. No masses. ORBITS AND GLOBE: No intra- or extraconal masses. Normal contour of globe without masses. CALVARIUM: No fracture. PARANASAL SINUSES: No fluid or mucosal thickening. SOFT TISSUES: No mass or hematoma. OTHER: No other significant finding. IMPRESSION: CHRONIC CHANGES OF ATROPHY AND MICROVASCULAR ISCHEMIA. NO ACUTE PROCESS. TECHNICAL DOCUMENTATION: JOB ID: [id number] Quality ID # [id number]: Final reports with documentation of one or more dose reduction techniques (e.g., Au tomated exposure control, adjustment of the mA and/or kV according to patient size, use of iterative reconstruction technique) 2010 [employer]- All Rights Reserved
[2017-05-01 18:24] LABS: ABSOLUTE BASOPHILS # (AUTO) 0.1 10^3/uL (0.0-0.2); ABSOLUTE EOSINOPHILS # (AUTO) 0.3 10^3/uL (0.0-0.6); ABSOLUTE LYMPHOCYTES (AUTO) 1.2 10^3/uL (0.5-4.7); ABSOLUTE MONOCYTES (AUTO) 0.4 10^3/uL (0.1-1.4); ABSOLUTE NEUT (AUTO) 4.8 10^3/uL (1.7-8.2); BASOPHILS % (AUTO) 1.3 % (0-2); EOSINOPHILS % (AUTO) 4.3 % (0-6); HEMATOCRIT 41.8 % (36.0-47.0); HEMOGLOBIN 13.7 g/dL (12.0-15.5); HGB HCT DIFFERENCE -0.7; LYMPHOCYTES % (AUTO) 17.9 % (13-45); MEAN CORPUSCULAR HEMOGLOBIN 29.5 pg (27.0-33.4); MEAN CORPUSCULAR HGB CONC 32.8 g/dL (32.0-36.0); MEAN CORPUSCULAR VOLUME 90 fl (80-97); MONOCYTES % (AUTO) 6.5 % (3-13); RED BLOOD COUNT 4.65 10^6/uL (3.72-5.28); RED CELL DISTRIBUTION WIDTH 17.6 % (11.5-14.0); WHITE BLOOD COUNT 6.8 10^3/uL (4.0-10.5)
[2017-05-01 18:43] LABS: ALANINE AMINOTRANSFERASE 26 U/L (9-52); ALBUMIN 4.4 g/dL (3.5-5.0); ALKALINE PHOSPHATASE 72 U/L (38-126); ANION GAP 10 (5-19); ASPARTATE AMINO TRANSFERASE 28 U/L (14-36); BILIRUBIN,DIRECT 0.2 mg/dL (0.0-0.4); BILIRUBIN,TOTAL 0.4 mg/dL (0.2-1.3); BLOOD UREA NITROGEN 23 mg/dL (7-20); CALCIUM 9.6 mg/dL (8.4-10.2); CARBON DIOXIDE 31 mmol/L (22-30); CHLORIDE 98 mmol/L (98-107); CREATININE RESULT 0.75 mg/dL (0.52-1.25); GLUCOSE 97 mg/dL (75-110); POTASSIUM 4.4 mmol/L (3.6-5.0); SODIUM 139.1 mmol/L (137-145); TOTAL PROTEIN 6.6 g/dL (6.3-8.2)
[2017-05-01 19:24] LABS: APPEARANCE,URINE TURBID; BILIRUBIN,URINE NEGATIVE (NEGATIVE); GLUCOSE, URINE NEGATIVE (NEGATIVE); KETONES,URINE NEGATIVE (NEGATIVE); LEUKOCYTE ESTERASE,URINE NEGATIVE (NEGATIVE); NITRITE,URINE NEGATIVE (NEGATIVE); PROTEIN,URINE NEGATIVE (NEGATIVE); UROBILINOGEN,URINE NEGATIVE mg/dL (<2.0)
--- NOTE | 2017-05-01 19:46 | ER Document Report ---
ED General - General Chief Complaint: Altered Mental Status Stated Complaint: ABNORMAL LABS,CONFUSION Time Seen by Provider: 05/01/17 17:26 Notes: Patient is a 76-year-old female who presents with a period of altered mental status yesterday evening. She comes in the emergency department today at the request of her primary care doctor. At time of presentation patient is asymptomatic and denies any acute medical complaints or concerns. States that yesterday after waking up from a nap in the middle the day she was very disoriented for 2-3 hours. States that she could not recall what day it was but never lost orientation of where she was or who she was. She is uncertain if she had any speech difficulties at the time knowing that she did not talk to anybody. She denies any focal weakness or numbness during that episode. Notes that it did completely resolve within several hours and she has been fine since that time. Patient home health nurse notified her doctor today of this episode and what she was there and instructed to come to the emergency department. She denies any history of similar symptoms in the past. She states her symptoms did resolve independently have any intervention and nothing seemed to worsen them are obviously trigger them. TRAVEL OUTSIDE OF THE [place] IN LAST 30 DAYS: No - Related Data Allergies/Adverse Reactions: adhesive tape Allergy (Verified 01/18/17 13:21) Home Medications: Current Home Medications Furosemide [Furosemide] 1 tab PO DAILY 05/01/17 [History] Tiotropium [place] [Spiriva Respimat] 2 inh IH QAM 05/01/17 [History] Past Medical History - General Information source: Patient - Social History Smoking Status: Never Smoker Chew tobacco use (# tins/day): No Frequency of alcohol use: None Drug Abuse: None Lives with: Alone Family History: Hypertension Patient has suicidal ideation: No Patient has homicidal ideation: No - Past Medical History Cardiac Medical History: Reports: Hx Atrial Fibrillation, Hx Hypertension Pulmonary Medical History: Reports: Hx COPD, Hx Pneumonia Endocrine Medical History: Reports: Hx Hypothyroidism Renal/ Medical History: Denies: Hx Peritoneal Dialysis Malignancy Medical History: Reports: Hx Breast Cancer - Stage III Musculoskeltal Medical History: Reports Hx Arthritis - Rheumatoid, Reports Hx Fibromyalgia Past Surgical History: Reports: Hx Hysterectomy, Hx Oral Surgery - Immunizations Hx Diphtheria, Pertussis, Tetanus Vaccination: Yes Hx Pneumococcal Vaccination: 01/01/10 Review of Systems - Review of Systems Notes: Constitutional: Negative for fever. HENT: Negative for sore throat. Eyes: Negative for visual changes. Cardiovascular: Negative for chest pain. Respiratory: Negative for shortness of breath. Gastrointestinal: Negative for abdominal pain, vomiting or diarrhea. Genitourinary: Negative for dysuria. Musculoskeletal: Negative for back pain. Skin: Negative for rash. Neurological: Negative for headaches, weakness or numbness. 10 point ROS negative except as marked above and in HPI. Physical Exam - Vital signs Vitals: Temp Pulse Resp BP Pulse Ox 97.9 F 79 14 154/101 H 92 05/01/17 16:46 05/01/17 16:46 05/01/17 16:46 05/01/17 16:46 05/01/17 16:46 Interpretation: Hypertensive Notes: PHYSICAL EXAMINATION: GENERAL: Well-appearing, well-nourished and in no acute distress. HEAD: Atraumatic, normocephalic. EYES: Pupils equal round and reactive to light, extraocular movements intact, sclera anicteric, conjunctiva are normal. ENT: nares patent, oropharynx clear without exudates. Moist mucous membranes. NECK: Normal range of motion, supple without lymphadenopathy LUNGS: Breath sounds clear to auscultation bilaterally and equal. No wheezes rales or rhonchi. HEART: Regular rate and rhythm without murmurs ABDOMEN: Soft, nontender, normoactive bowel sounds. No guarding, no rebound. No masses appreciated. EXTREMITIES: Normal range of motion, no pitting or edema. No cyanosis. NEUROLOGICAL: Face symmetric. Tongue protrudes midline. Extraocular motions intact. Pupils are 2 mm and equally reactive. Normal speech, normal gait. 5 out of 5 strength in both the distal and proximal upper and lower extremities bilaterally. Sensation is grossly intact throughout. Finger to nose testing normal. Pronator drift normal. PSYCH: Normal mood, normal affect. SKIN: Warm, Dry, normal turgor, no rashes or lesions noted. Course - Re-evaluation Re-evalutation: 05/01/17 19:44 Presentation and an overall well-appearing patient in no acute distress who complains of a period of confusion yesterday that has since resolved. At time of evaluation, patient's vitals are within normal limits and they are denying any acute complaints. Physical examination without focal findings. No neurologic deficits. They deny any chest pain, shortness of breath, nausea, vomiting, or diarrhea. No dysuria or fever. Basic laboratories including and urinalysis are unremarkable. A CT of the head obtained in triage is also noted to be normal. Low clinical suspicion for ACS, occult pneumonia, acute intra- abdominal pathology, stroke, or transient ischemic attack based on clinical history, examination, and laboratories. They have tolerated oral intake without difficulty. I have discussed the importance of close outpatient follow- up as well as the need to return to emergency room immediately should they have any new or worsening symptoms. The patient and surrogate's are in agreement with this plan and verbalized indications for return to emergency department. - Vital Signs Vital signs: Temp Pulse Resp BP Pulse Ox 97.9 F 70 18 198/101 H 96 05/01/17 16:46 05/01/17 19:11 05/01/17 19:11 05/01/17 20:01 05/01/17 20:01 - Laboratory Result Diagrams: 05/01/17 17:52 05/01/17 17:52 Laboratory results interpreted by me: 05/01/17 05/01/17 05/01/17 17:52 17:52 18:55 RDW 17.6 H Carbon Dioxide 31 H BUN 23 H Urine Ascorbic Acid 40 H - Diagnostic Test Radiology reviewed: Image reviewed, Reports reviewed Radiology results interpreted by me: 05/01/17 19:45 CT head: No acute intracranial bleed Discharge - Discharge Clinical Impression: Hypertensive urgency, Transient alteration of awareness Condition: Good Disposition: HOME, SELF-CARE Additional Instructions: Please return to the emergency room immediately if you experience any concerning symptoms including high fevers, severe headache, chest pain, difficulty breathing, abdominal pain, slurred speech, numbness or weakness in your arms or legs, or any other symptom that concerns you.
[2017-05-01 20:05] VITALS: BP 198/101
== END 2017-05-01 20:16 | disposition home or self-care (01) ==
LOC: ER 16:25
DX: I16.0 Hypertensive urgency (principal); R40.4 Transient alteration of awareness; I48.91 Unspecified atrial fibrillation; J44.9 Chronic obstructive pulmonary disease, unspecified; E03.9 Hypothyroidism, unspecified; Z85.3 Personal history of malignant neoplasm of breast; Z90.710 Acquired absence of both cervix and uterus
CPT/HCPCS: 36415; 70450; 80053; 81001; 85025; 99285

== ENCOUNTER → 2018-01-27 | Outpatient (CLI) | payer MEDICARE, MEDICAID ==
[2018-01-27 10:46] LABS: ABSOLUTE BASOPHILS # (AUTO) 0.1 10^3/uL (0.0-0.2); ABSOLUTE EOSINOPHILS # (AUTO) 0.5 10^3/uL (0.0-0.6); ABSOLUTE LYMPHOCYTES (AUTO) 1.4 10^3/uL (0.5-4.7); ABSOLUTE MONOCYTES (AUTO) 0.6 10^3/uL (0.1-1.4); ABSOLUTE NEUT (AUTO) 4.5 10^3/uL (1.7-8.2); BASOPHILS % (AUTO) 1.3 % (0-2); EOSINOPHILS % (AUTO) 7.3 % (0-6); HEMATOCRIT 41.5 % (36.0-47.0); HEMOGLOBIN 13.8 g/dL (12.0-15.5); LYMPHOCYTES % (AUTO) 20.1 % (13-45); MEAN CORPUSCULAR HEMOGLOBIN 29.8 pg (27.0-33.4); MEAN CORPUSCULAR HGB CONC 33.3 g/dL (32.0-36.0); MEAN CORPUSCULAR VOLUME 90 fl (80-97); PLATELET COUNT 241 10^3/uL (150-450); RED BLOOD COUNT 4.64 10^6/uL (3.72-5.28); RED CELL DISTRIBUTION WIDTH 14.9 % (11.5-14.0); SEGMENTED NEUTROPHILS % (AUTO) 63.3 % (42-78); TOTAL CELLS COUNTED % (AUTO) 100 %; WHITE BLOOD COUNT 7.2 10^3/uL (4.0-10.5)
[2018-01-27 11:13] LABS: ALANINE AMINOTRANSFERASE 29 U/L (9-52); ALBUMIN 4.4 g/dL (3.5-5.0); ALKALINE PHOSPHATASE 62 U/L (38-126); ANION GAP 9 (5-19); ASPARTATE AMINO TRANSFERASE 31 U/L (14-36); BILIRUBIN,DIRECT 0.1 mg/dL (0.0-0.4); BILIRUBIN,TOTAL 0.4 mg/dL (0.2-1.3); BLOOD UREA NITROGEN 22 mg/dL (7-20); CALCIUM 9.9 mg/dL (8.4-10.2); CARBON DIOXIDE 34 mmol/L (22-30); CHLORIDE 100 mmol/L (98-107); GLUCOSE 95 mg/dL (75-110); POTASSIUM 4.1 mmol/L (3.6-5.0); SODIUM 142.5 mmol/L (137-145); TOTAL PROTEIN 6.5 g/dL (6.3-8.2); TRIGLYCERIDES 111 mg/dL (<150)
[2018-01-27 11:24] LABS: DIRECT LDL 149 mg/dL (<100)
[2018-01-28 05:40] LABS: THYROXINE (T4) 4.2 ug/dL (4.5-12.0)
[2018-01-28 07:15] LABS: FREE THYROXINE INDEX 0.9 (1.2-4.9)
== END ==
LOC: OD 09:56
PROVIDERS: ATTEND Family Medicine Geriatric Medicine
DX: I10 Essential (primary) hypertension (principal); E03.9 Hypothyroidism, unspecified; E87.6 Hypokalemia; J44.9 Chronic obstructive pulmonary disease, unspecified; Z79.899 Other long term (current) drug therapy
CPT/HCPCS: 36415; 80053; 80061; 83735; 84436; 84443; 84479; 85025

== ENCOUNTER → 2018-03-27 | Outpatient (CLI) | payer MEDICARE, MEDICAID ==
[2018-03-27 12:06] LABS: FREE T3 2.8 pg/mL (2.77-5.27); FREE T4 (FREE THYROXINE) 0.89 ng/dL (0.78-2.19)
== END ==
LOC: OD 09:52
PROVIDERS: ATTEND Family Medicine Geriatric Medicine
DX: E03.9 Hypothyroidism, unspecified (principal); Z79.899 Other long term (current) drug therapy
CPT/HCPCS: 36415; 84439; 84443; 84481

== ENCOUNTER → 2018-04-30 | Outpatient (CLI) | payer MEDICARE, MEDICAID ==
[2018-04-30 11:46] LABS: THYROXINE T4 6.81 ug/dL (5.53-11.0)
== END ==
LOC: OD 10:27
PROVIDERS: ATTEND Family Medicine Geriatric Medicine
DX: E03.9 Hypothyroidism, unspecified (principal); Z79.899 Other long term (current) drug therapy
CPT/HCPCS: 36415; 84436; 84443; 84479

== ENCOUNTER → 2018-07-30 | Outpatient (CLI) | payer MEDICARE, MEDICAID ==
[2018-07-30 14:41] LABS: ANION GAP 9 (5-19); BLOOD UREA NITROGEN 16 mg/dL (7-20); CALCIUM 9.6 mg/dL (8.4-10.2); CARBON DIOXIDE 30 mmol/L (22-30); CHLORIDE 101 mmol/L (98-107); GLUCOSE 86 mg/dL (75-110); POTASSIUM 4.4 mmol/L (3.6-5.0); SODIUM 139.7 mmol/L (137-145); URIC ACID 4.6 mg/dL (2.5-7.5)
== END ==
LOC: OD 12:53
PROVIDERS: ATTEND Family Medicine Geriatric Medicine
DX: M25.561 Pain in right knee (principal); M25.562 Pain in left knee; E03.9 Hypothyroidism, unspecified; E87.6 Hypokalemia
CPT/HCPCS: 36415; 80048; 84443; 84550

== ENCOUNTER → 2018-08-12 | Outpatient (CLI) | payer MEDICARE, MEDICAID ==
--- NOTE | 2018-08-12 14:06 | RADIOLOGY REPORT (SQ) ---
EXAM DESCRIPTION: VENOUS UNILATERAL LOWER COMPLETED DATE/TIME: 08/12/2018 1:57 pm REASON FOR STUDY: LLE EDEMA R60.0 LOCALIZED EDEMA COMPARISON: None. TECHNIQUE: Dynamic and static novoa scale and color images acquired of the left leg venous system. Se lected spectral images acquired with additional compression and augmentation maneuvers. The contralat eral common femoral vein and saphenofemoral junction were also imaged. Images stored on PACS. LIMITATIONS: None. FINDINGS: COMMON FEMORAL: Normal phasicity, compression and augmentation. No visualized echogenic ma terial on novoa scale. No defects on color images. FEMORAL: Normal compression and augmentation. No visualized echogenic material on novoa scale. No defe cts on color images. POPLITEAL: Normal compression, augmentation. No visualized echogenic material on novoa scale. No defec ts on color images. CALF VESSELS: Normal compression, augmentation. No visualized echogenic material on novoa scale. No de fects on color images. GSV and SSV: Normal compression, augmentation. No visualized echogenic material on novoa scale. No def ects on color images. ANY DEEP VENOUS INSUFFICIENCY: Not evaluated. ANY EVIDENCE OF POPLITEAL CYST: No. OTHER: No other significant finding. CONTRALATERAL COMMON FEMORAL VEIN AND SAPHENOFEMORAL JUNCTION: Normal phasicity, compression and augmentation. No visualized echogenic material on novoa scale. No de fects on color images. IMPRESSION: NO EVIDENCE DVT OR SVT IN THE LEFT LEG. TECHNICAL DOCUMENTATION: JOB ID: [id number] [employer]- All Rights Reserved Reading location - IP/workstation name: [email or web address]
== END ==
LOC: SP 15:05
PROVIDERS: ATTEND Internal Medicine Critical Care Medicine
DX: R91.1 Solitary pulmonary nodule (principal); R91.8 Other nonspecific abnormal finding of lung field; R60.0 Localized edema; J45.909 Unspecified asthma, uncomplicated; J44.9 Chronic obstructive pulmonary disease, unspecified; J84.9 Interstitial pulmonary disease, unspecified; R09.02 Hypoxemia; Z92.21 Personal history of antineoplastic chemotherapy; Z85.3 Personal history of malignant neoplasm of breast; Z92.3 Personal history of irradiation
CPT/HCPCS: 93971

== ENCOUNTER → 2018-08-14 | Outpatient (CLI) | payer MEDICARE, MEDICAID ==
--- NOTE | 2018-08-14 17:22 | XCELERA REPORT ---
[address] [address] Transthoracic Echocardiogram Report Name: HARSH PATE Age: 78 yrs Gender: Female : 1940 Patient Status: Outpatient Patient Location: [facility] Study Date: 08/14/2018 01:33 PM Procedure: A two-dimensional transthoracic echocardiogram with color flow and Doppler was performed. The study was technically difficult with many images being suboptimal in quality. Reason For Study: SOB History: Shortness of breath. Ordering Physician: SHANNAN SEYMOUR Performed By: Yara Jeffrey Interpretation Summary Shortness of breath The left ventricle is normal in size. There is normal left ventricular wall thickness. LV EF is > THAN 60% Left ventricular systolic function is normal. Doppler measurements suggest normal left ventricular diastolic function The left ventricular wall motion is normal. The right ventricle is normal in size and function. The right atrium is normal. The left atrial size is normal. There is no evidence of mitral valve prolapse. There is no vegetation seen on the mitral valve. There is no mitral valve stenosis. There is a trace to mild amount of mitral regurgitation There is no aortic valvular vegetation. There is no aortic valve stenosis There is no LVOT obstruction. No aortic regurgitation is present. There is no tricuspid stenosis. There is a moderate amount of tricuspid regurgitation There is moderate pulmonary hypertension by echo RVSP is 55 to 60 mm of Hg , with RA mean of 5 to 10. There is no pericardial effusion. MMode/2D Measurements & Calculations RVDd: 2.9 cm LVIDd: 5.4 cm FS: 34.7 % Ao root diam: 2.6 cm IVSd: 0.86 cm LVIDs: 3.5 cm EDV(Teich): 138.5 ml Ao root area: 5.4 cm2 LVPWd: 0.88 cm ESV(Teich): 50.7 ml EF(Teich): 63.4 % Doppler Measurements & Calculations MV E max antonio: MV dec slope: Ao V2 max: LV V1 max P.4 cm/sec 117.9 cm/sec 3.6 mmHg MV A max antonio: 563.0 cm/sec2 Ao max P.6 mmHgLV V1 max: 94.7 cm/sec MV dec time: 0.18 sec 94.9 cm/sec MV E/A: 1.1 PA V2 max: PI max antonio: TR max antonio: 76.9 cm/sec 199.6 cm/sec 353.9 cm/sec PA max P.4 mmHg PI max P.9 mmHg TR max PG: PI dec slope: 50.1 mmHg 134.9 cm/sec2 Left Ventricle The left ventricle is normal in size. There is normal left ventricular wall thickness. LV EF is > THAN 60%. Left ventricular systolic function is normal. Doppler measurements suggest normal left ventricular diastolic function. The left ventricular wall motion is normal. There is no thrombus. Right Ventricle The right ventricle is normal in size and function. Atria The right atrium is normal. The left atrial size is normal. Mitral Valve There is no evidence of mitral valve prolapse. There is no vegetation seen on the mitral valve. There is no mitral valve stenosis. There is a trace to mild amount of mitral regurgitation. Aortic Valve There is no aortic valvular vegetation. There is no aortic valve stenosis. There is no LVOT obstruction. No aortic regurgitation is present. Tricuspid Valve There is no tricuspid stenosis. There is a moderate amount of tricuspid regurgitation. There is moderate pulmonary hypertension by echo. RVSP is 55 to 60 mm of Hg , with RA mean of 5 to 10. Pulmonic Valve The pulmonic valve is not well visualized. Great Vessels The aortic root is not well visualized but is probably normal size. The inferior vena cava appeared normal and decreased > 50% with respiration (RAP 5-10 mmHg). Effusions There is no pericardial effusion. : SHANNAN SEYMOUR > Nohemy Brenner
== END ==
LOC: SP 14:00
PROVIDERS: ATTEND Family Medicine Geriatric Medicine
DX: R06.02 Shortness of breath (principal)
CPT/HCPCS: 93306

== ENCOUNTER → 2018-09-10 | Outpatient (CLI) | payer MEDICARE, MEDICAID | LOC: LAB 11:19 | PROVIDERS: ATTEND Family Medicine Geriatric Medicine | DX: E03.9 Hypothyroidism, unspecified (principal) | CPT/HCPCS: 36415; 84443 ==

== ENCOUNTER → 2018-09-29 | Outpatient (CLI) | payer MEDICARE, MEDICAID | LOC: OD 11:20 | PROVIDERS: ATTEND Family Medicine Geriatric Medicine | DX: Z53.9 Procedure and treatment not carried out, unspecified reason (principal) ==

== ENCOUNTER → 2018-10-28 | Outpatient (CLI) | payer MEDICARE, MEDICAID ==
[2018-10-28 15:34] LABS: ANION GAP 9 (5-19); BLOOD UREA NITROGEN 16 mg/dL (7-20); CALCIUM 9.8 mg/dL (8.4-10.2); CARBON DIOXIDE 30 mmol/L (22-30); CHLORIDE 101 mmol/L (98-107); GLUCOSE 97 mg/dL (75-110); POTASSIUM 4.4 mmol/L (3.6-5.0); SODIUM 140.4 mmol/L (137-145); URIC ACID 4.4 mg/dL (2.5-7.5)
--- NOTE | 2018-10-28 15:40 | RADIOLOGY REPORT (SQ) ---
EXAM DESCRIPTION: WRIST BILATERAL 3 VIEWS; HAND BILATERAL 3 VIEWS COMPLETED DATE/TIME: 10/28/2018 3:08 pm REASON FOR STUDY: PAIN IN BOTH WRISTS; PAIN IN BOTH HANDS M25.531 PAIN IN RIGHT WRIST M25.532 PAIN IN LEFT WRIST I27.20 PULMONARY HYPERTENSION, UNSPECIFIED COMPARISON: None. NUMBER OF VIEWS: 12 views. TECHNIQUE: AP, lateral, and oblique radiographic images acquired of the right and left wrist and rig ht and left hands. LIMITATIONS: None. FINDINGS: MINERALIZATION: Normal. BONES: There is joint space narrowing in multiple interphalangeal joints bilaterally and base of the 1st metacarpal on the right. Central erosions right 5th distal interphalangeal joint. Joint space n arrowing and subchondral sclerosis right scaphoid trapezium articulation. No chondrocalcinosis. SOFT TISSUES: No foreign body. OTHER: No other significant finding. 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 TECHNICAL DOCUMENTATION: JOB ID: [id number] [employer]- All Rights Reserved Reading location - IP/workstation name: [facility]
--- NOTE | 2018-10-28 15:40 | RADIOLOGY REPORT (SQ) ---
EXAM DESCRIPTION: WRIST BILATERAL 3 VIEWS; HAND BILATERAL 3 VIEWS COMPLETED DATE/TIME: 10/28/2018 3:08 pm REASON FOR STUDY: PAIN IN BOTH WRISTS; PAIN IN BOTH HANDS M25.531 PAIN IN RIGHT WRIST M25.532 PAIN IN LEFT WRIST I27.20 PULMONARY HYPERTENSION, UNSPECIFIED COMPARISON: None. NUMBER OF VIEWS: 12 views. TECHNIQUE: AP, lateral, and oblique radiographic images acquired of the right and left wrist and rig ht and left hands. LIMITATIONS: None. FINDINGS: MINERALIZATION: Normal. BONES: There is joint space narrowing in multiple interphalangeal joints bilaterally and base of the 1st metacarpal on the right. Central erosions right 5th distal interphalangeal joint. Joint space n arrowing and subchondral sclerosis right scaphoid trapezium articulation. No chondrocalcinosis. SOFT TISSUES: No foreign body. OTHER: No other significant finding. 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 TECHNICAL DOCUMENTATION: JOB ID: [id number] [employer]- All Rights Reserved Reading location - IP/workstation name: [facility]
== END ==
LOC: OD 14:22
PROVIDERS: ATTEND Family Medicine Geriatric Medicine
DX: M25.531 Pain in right wrist (principal); M25.532 Pain in left wrist; I27.20 Pulmonary hypertension, unspecified; E03.9 Hypothyroidism, unspecified; E87.6 Hypokalemia; R60.0 Localized edema; E83.41 Hypermagnesemia; R91.1 Solitary pulmonary nodule; Z29.9 Encounter for prophylactic measures, unspecified; E78.5 Hyperlipidemia, unspecified; I10 Essential (primary) hypertension; Z68.41 Body mass index [BMI] 40.0-44.9, adult; M79.642 Pain in left hand; M79.641 Pain in right hand; R39.15 Urgency of urination
CPT/HCPCS: 36415; 80048; 83735; 84550

== ENCOUNTER 2018-12-18 16:27 | Emergency (ER) | payer MEDICARE, MEDICAID ==
--- NOTE | 2018-12-18 19:24 | ER Document Report ---
ED Medical Screen (RME) - General Chief Complaint: Breathing Difficulty Stated Complaint: DIFFICULTY BREATHING Time Seen by Provider: 12/18/18 19:17 Primary Care Provider: SHANNAN LINARES MD [Primary Care Provider] - Follow up as needed Mode of Arrival: Ambulatory Information source: Patient Notes: 78-year-old female presents to ED for complaint of increased shortness of breath with increased edema over the last 6 months. She states she is COPD and on 3 L O2 nasal cannula. She states that Dr. Linares is aware that she has been having increased edema but now the edema is up into her abdomen chest and her clothes are getting tight and she is not eating more than she normally does. 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 Her lungs are diminished but no wheezing noted at this time. Patient is on Lasix 20 mg twice daily, metoprolol tartrate 5 mg 1 pill in the morning and one half in the evening. Synthroid 150 mcg daily. Testing chloride 10 mEq twice a day. Hydrocortisone 5 mg twice daily. She is also on an inhaler Breo Ellipta. I have greeted and performed a rapid initial assessment of this patient. A comprehensive ED assessment and evaluation of the patient, analysis of test results and completion of medical decision making process will be conducted by an additional ED providers. TRAVEL OUTSIDE OF THE [place] IN LAST 30 DAYS: No - Related Data Allergies/Adverse Reactions: adhesive tape Allergy (Verified 12/18/18 16:29) Past Medical History - Past Medical History Cardiac Medical History: Reports: Hx Atrial Fibrillation, Hx Hypertension Pulmonary Medical History: Reports: Hx COPD, Hx Pneumonia Endocrine Medical History: Reports: Hx Hypothyroidism Renal/ Medical History: Denies: Hx Peritoneal Dialysis Malignancy Medical History: Reports: Hx Breast Cancer - Stage III Musculoskeltal Medical History: Reports Hx Arthritis - Rheumatoid, Reports Hx Fibromyalgia Past Surgical History: Reports: Hx Hysterectomy, Hx Oral Surgery - Immunizations Hx Diphtheria, Pertussis, Tetanus Vaccination: Yes Physical Exam - Vital signs Vitals: Temp Pulse Resp BP Pulse Ox 99.5 F 83 19 153/89 H 94 12/18/18 16:46 12/18/18 16:46 12/18/18 16:46 12/18/18 16:46 12/18/18 16:46 Course - Vital Signs Vital signs: Temp Pulse Resp BP Pulse Ox 99.5 F 83 19 153/89 H 94 12/18/18 16:46 12/18/18 16:46 12/18/18 16:46 12/18/18 16:46 12/18/18 16:46 Doctor's Discharge - Discharge Referrals: SHANNAN LINARES MD [Primary Care Provider] - Follow up as needed
[2018-12-18 19:40] LABS: ABSOLUTE BASOPHILS # (AUTO) 0.1 10^3/uL (0.0-0.2); ABSOLUTE EOSINOPHILS # (AUTO) 0.5 10^3/uL (0.0-0.6); ABSOLUTE LYMPHOCYTES (AUTO) 1.6 10^3/uL (0.5-4.7); ABSOLUTE MONOCYTES (AUTO) 0.8 10^3/uL (0.1-1.4); ABSOLUTE NEUT (AUTO) 4.4 10^3/uL (1.7-8.2); BASOPHILS % (AUTO) 1.3 % (0-2); EOSINOPHILS % (AUTO) 6.5 % (0-6); HEMATOCRIT 42.3 % (36.0-47.0); HEMOGLOBIN 14.5 g/dL (12.0-15.5); MEAN CORPUSCULAR HEMOGLOBIN 29.9 pg (27.0-33.4); MEAN CORPUSCULAR HGB CONC 34.3 g/dL (32.0-36.0); MEAN CORPUSCULAR VOLUME 87 fl (80-97); MONOCYTES % (AUTO) 10.5 % (3-13); PLATELET COUNT 270 10^3/uL (150-450); RED BLOOD COUNT 4.86 10^6/uL (3.72-5.28); SEGMENTED NEUTROPHILS % (AUTO) 59.7 % (42-78); TOTAL CELLS COUNTED % (AUTO) 100 %; WHITE BLOOD COUNT 7.4 10^3/uL (4.0-10.5)
[2018-12-18 20:06] LABS: ALANINE AMINOTRANSFERASE 27 U/L (9-52); ALBUMIN 4.6 g/dL (3.5-5.0); ALKALINE PHOSPHATASE 97 U/L (38-126); ANION GAP 11 (5-19); ASPARTATE AMINO TRANSFERASE 30 U/L (14-36); BILIRUBIN,DIRECT 0.2 mg/dL (0.0-0.4); BILIRUBIN,TOTAL 0.4 mg/dL (0.2-1.3); BLOOD UREA NITROGEN 18 mg/dL (7-20); CARBON DIOXIDE 34 mmol/L (22-30); CHLORIDE 97 mmol/L (98-107); GLUCOSE 99 mg/dL (75-110); POTASSIUM 4.4 mmol/L (3.6-5.0); SODIUM 141.8 mmol/L (137-145)
--- NOTE | 2018-12-18 20:33 | RADIOLOGY REPORT (SQ) ---
EXAM DESCRIPTION: XR CHEST 2 VIEWS COMPLETED DATE/TME: 12/18/2018 19:17 CLINICAL HISTORY: increased sob, edema COMPARISON: January 18, 2017 FINDINGS: Cardiac silhouette is within normal limits. Patient is rotated. There is atherosclerosis. Contour of the ribs is unchanged compared with the prior exam. Compression deformity of a midthoracic vertebral body is unchanged compared with the prior exam. There is no focal parenchymal or pleural disease. There is no acute osseous process visualized. IMPRESSION: No evidence of acute cardiopulmonary disease.
[2018-12-18 20:57] LABS: APPEARANCE,URINE SLIGHTLY-CLOUDY; BILIRUBIN,URINE NEGATIVE (NEGATIVE); COLOR,URINE YELLOW; GLUCOSE, URINE NEGATIVE (NEGATIVE); KETONES,URINE NEGATIVE (NEGATIVE); LEUKOCYTE ESTERASE,URINE TRACE (NEGATIVE); NITRITE,URINE NEGATIVE (NEGATIVE); PROTEIN,URINE NEGATIVE (NEGATIVE); URINE SPECIFIC GRAVITY 1.006; UROBILINOGEN,URINE NEGATIVE mg/dL (<2.0)
--- NOTE | 2018-12-18 21:36 | ER Document Report ---
ED General - General Chief Complaint: Breathing Difficulty Stated Complaint: DIFFICULTY BREATHING Time Seen by Provider: 12/18/18 19:17 Primary Care Provider: SHANNAN LINARES MD [Primary Care Provider] - Follow up as needed Mode of Arrival: Ambulatory Notes: 78-year-old female with COPD followed by Dr. Linares presents to ED for complaint of increased shortness of breath with increased edema over the last 6 months. She states she is 3 L O2 nasal cannula at home. She states the edema has gotten worse and is now at the level of her chest and abdomen. Typically states she can walk 1/4 mile loop around her house and stop a couple of times. Now she states she cannot even complete the loop at all. She states she is short of breath when walking around her house which is new. She denies any recent illness, fever, chills, cough, wheezing, nausea, vomiting. Denies any urinary symptoms. 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 She was recently increased to Lasix 20 mg 2 times per day from single dosing. She she also takes hydrocortisone 5 mg twice daily and the inhaler Breo Ellipta. TRAVEL OUTSIDE OF THE [place] IN LAST 30 DAYS: No - Related Data Allergies/Adverse Reactions: adhesive tape Allergy (Verified 12/18/18 16:29) Past Medical History - General Information source: Patient - Social History Smoking Status: Former Smoker Frequency of alcohol use: None Drug Abuse: None Family History: Hypertension Patient has suicidal ideation: No Patient has homicidal ideation: No - Past Medical History Cardiac Medical History: Reports: Hx Atrial Fibrillation, Hx Hypertension Pulmonary Medical History: Reports: Hx COPD, Hx Pneumonia Endocrine Medical History: Reports: Hx Hypothyroidism Renal/ Medical History: Denies: Hx Peritoneal Dialysis Malignancy Medical History: Reports: Hx Breast Cancer - Stage III Musculoskeletal Medical History: Reports Hx Arthritis - Rheumatoid, Reports Hx Fibromyalgia Past Surgical History: Reports: Hx Hysterectomy, Hx Oral Surgery - Immunizations Hx Diphtheria, Pertussis, Tetanus Vaccination: Yes Hx Pneumococcal Vaccination: 10/14/09 Review of Systems - Review of Systems Constitutional: See HPI EENT: No symptoms reported Cardiovascular: See HPI Respiratory: See HPI Gastrointestinal: See HPI Genitourinary: See HPI Female Genitourinary: No symptoms reported Musculoskeletal: No symptoms reported Skin: No symptoms reported Hematologic/Lymphatic: No symptoms reported Neurological/Psychological: No symptoms reported Physical Exam - Vital signs Vitals: Temp Pulse Resp BP Pulse Ox 99.5 F 83 19 153/89 H 94 12/18/18 16:46 12/18/18 16:46 12/18/18 16:46 12/18/18 16:46 12/18/18 16:46 - Notes Notes: PHYSICAL EXAMINATION: Reviewed vital signs and charting by RN GENERAL: Alert, interacts well. No acute distress. HEAD: Normocephalic, atraumatic. NECK: Full range of motion. Supple. Trachea midline. LUNGS: Mild inspiratory crackles on inspiration all schroeder, no wheezes, rales, or rhonchi. No respiratory distress. HEART: Regular rate and rhythm. No murmur. Pronounced 3+ edema bilateral lower extremities and abdomen, with trace pitting. ABDOMEN: soft, non-tender, distended. Bowel sounds present in all 4 quadrants. no McBurney's point tenderness, no Sales sign. EXTREMITIES: Moves all 4 extremities spontaneously. No edema, No cyanosis. NEUROLOGICAL: Alert. Normal speech. PSYCH: Normal affect, normal mood. SKIN: Warm, dry, normal turgor. No rashes or lesions noted. Course - Re-evaluation Re-evalutation: 12/18/18 22:03 Pleasant, well-appearing 78 female who is having difficulty breathing. Chest x- ray showed no consolidation concerning for pneumonia. There are mild inspiratory crackles heard in all schroeder. She has pronounced edema of her bi lateral lower extremities. 12/18/18 22:[address] Tucker. Patient is in no acute distress and this is more of a CHF exacerbation type of picture than COPD exacerbation. Again, patient is not in extremis, vital signs are stable, and she will receive a dose of Lasix 20 mg IV 1 time. Potassium is 4.4. Patient will be safe and stable to discharge home 12/18/18 23:24 Patient already responding to the Lasix IV. Has urinated once. Patient states she wishes to go home. Vital signs are stable. Patient is stable to discharge. - Vital Signs Vital signs: Temp Pulse Resp BP Pulse Ox 99.5 F 83 19 195/90 H 100 12/18/18 16:46 12/18/18 16:46 12/18/18 22:08 12/18/18 22:08 03/07/19 22:08 - Laboratory Result Diagrams: 12/18/18 19:30 12/18/18 19:30 Laboratory results interpreted by me: 12/18/18 12/18/18 12/18/18 19:30 19:30 19:30 Eosinophils % 6.5 H Chloride 97 L Carbon Dioxide 34 H Calcium 11.0 H NT-Pro-B Natriuret Pep 867 H Ur Leukocyte Esterase Urine Ascorbic Acid 12/18/18 20:25 Eosinophils % Chloride Carbon Dioxide Calcium NT-Pro-B Natriuret Pep Ur Leukocyte Esterase TRACE H Urine Ascorbic Acid 20 H Discharge - Discharge Clinical Impression: Edema due to congestive heart failure Condition: Good Disposition: HOME, SELF-CARE Additional Instructions: You were seen in the emergency department this evening for shortness of breath and swelling of your legs and abdomen. This is most likely due to congestive heart failure and not from COPD. Your weight has increased significantly from a previous visit which leads us to believe this. Also hearing the faint crackles in your breathing is another clue. We have given you Lasix 20 mg IV to help take off some of the fluid. You can expect to urinate a lot. Your potassium was fine so there is no worries with respect to it getting low. Please follow- up with Dr. Linares tomorrow morning. If you develop acute shortness of breath, severe chest pain, Referrals: SHANNAN LINARES MD [Primary Care Provider] - Follow up as needed
[2018-12-18 22:21] VITALS: BP 195/90
[2018-12-18] MEDS ORDERED: FUROSEMIDE INJ/PF 20 MG/2 ML SDV IV ONE (22:22)
== END 2018-12-18 23:57 | disposition home or self-care (01) ==
LOC: ER 16:27
DX: J44.9 Chronic obstructive pulmonary disease, unspecified (principal); R60.9 Edema, unspecified; R06.00 Dyspnea, unspecified; I50.9 Heart failure, unspecified; I11.0 Hypertensive heart disease with heart failure; I48.91 Unspecified atrial fibrillation; E03.9 Hypothyroidism, unspecified; Z99.81 Dependence on supplemental oxygen; Z85.3 Personal history of malignant neoplasm of breast; Z90.710 Acquired absence of both cervix and uterus
CPT/HCPCS: 99285; 96374; 36415; 85025; 80053; 81001; 83880; 71046; J1940

== ENCOUNTER → 2018-12-30 | Outpatient (CLI) | payer MEDICARE, MEDICAID | LOC: OD 14:40 | PROVIDERS: ATTEND Family Medicine Geriatric Medicine | DX: E03.9 Hypothyroidism, unspecified (principal); Z79.899 Other long term (current) drug therapy | CPT/HCPCS: 36415; 84443 ==

== ENCOUNTER → 2019-02-17 | Outpatient (CLI) | payer MEDICARE, MEDICAID ==
--- NOTE | 2019-02-17 10:39 | RADIOLOGY REPORT (SQ) ---
EXAM DESCRIPTION: MAGDALENE SWALLOW COMPLETED DATE/TIME: 02/17/2019 9:31 am REASON FOR STUDY: DYSPHAGIA (R13.19) R13.19 OTHER DYSPHAGIA COMPARISON: None. TECHNIQUE: Videofluoroscopic swallowing examination was performed in conjunction with speech patholo gy. Videofluoroscopic imaging was obtained and reviewed and these are the findings: RADIATION DOSE: Fluoro time 1.1 minutes 1 images saved to PACS. LIMITATIONS: None FINDINGS: The patient was brought into the fluoro room and placed upright on a modified barium swall ow chair. The patient was then given multiple consistencies mixed with barium to swallow under live fluoroscopic video guidance. According to the Speech Pathologist there was no penetration or aspirat ion. IMPRESSION: NO EVIDENCE OF PENETRATION OR ASPIRATION. PLEASE SEE SPEECH PATHOLOGIST REPORT FOR OTHER FINDINGS AND RECOMMENDATIONS. COMMENT: None Quality ID [id number]: Final reports for procedures using fluoroscopy that document radiation exposure gaby colton, or exposure time and number of fluorographic images (if radiation exposure indices are not avail able) TECHNICAL DOCUMENTATION: JOB ID: [id number] [employer]- All Rights Reserved Reading location - IP/workstation name: [email or web address]
--- NOTE | 2019-02-17 10:50 | ST Modified Barium Swallow ---
Recommendation - Recommendations Recommendations: No oral or pharyngal phase deficits seen. Recommend continuing regular diet with universal aspiration precautions. Medical Diagnoses - Medical Diagnoses Medical Diagnosis Description & ICD-10 Code(s): dysphagia R13.19 Other Medical Diagnoses/Co-Morbidities: per patient report: COPD ST Modified Barium Swallow - General Date: 02/17/19 Referring Physician: Dr. Arrieta Date of Onset: 01/12/19 - approximate onset date Reason for Referral: rule out aspiration - History History obtained from: Patient -: Medical - Patient reports no difficulty eating or drinking. Does report o ccasional coughing on her own secretions when sitting in reclined position. States that this has only happened a few times. Medications: patient arrived with home oxygen, full medication list not provided. Allergies: Patient reported food allergies. Named wheat and dairy, and stated "some other things". Therapist reviewed foods to be used in the study (mariah cracker, chocolate pudding) and asked the patient if we needed to make substitutions. Patient stated no, that she would be ok with the pudding and cracker. - Functional Status Prior Functional Status: INDEPENDENT: feeding Current Functional Limitations: feeding - Subjective Patient/caregiver goal(s): r/o aspiration Cognitive-Linguistic Function: WNL Speech Intelligibility: WNL Current Nutritional Means: PO Current PO diet: Regular Pain: Patient reports, 0/5 - Objective Assessment: Upright, Left Lateral - Food Trials Used Food trials used: Thin liquids, Pureed, Regular The patient: Was Able to Self Feed - Oral-Motor Skills Dentition: Dentures-Upper, Dentures-Lower Velo-pharyngeal function: Unremarkable - Assessment Oral prep: Normal Labial closure: Adequate Leakage: None Mastication: Adequate Lingual Movement: Normal Oral stage: Normal for this Procedure - Pharyngeal Stage Initiation of Pharyngeal Stage Reflex: Normal Decreased laryngeal elevation: No Reduced Velopharyngeal Closure: no Reduced pressure generation: No reduced tongue-based retraction: No Pre-swallow pooling in valleculae: None Pre-Swallow pooling in pyriforms: None Reduced Thyro-Hyoid approximation: No Reduced epiglottic excursion: No Reduced pharyngeal peristalsis/contraction: No Post-swallow residulas vallecular: None Post-Swallow residuals in pyriforms: None - Fall Risk Assessment Medications/Conditions that increase fall risks include: Antidepressants, sedatives, anti-arrhythmic, diuretic, benzodiazipenes, neuroleptics. BP regulation problems, cardiac problems, balance or gait deficits, neurological problems. Fall Risk Actions Taken: No action needed - Behavioral Observations During evaluation process patient: was pleasant, was cooperative, able to answer questions - Treatment / Educational Needs: Treatment/Education Needs: Treatment consisted of patient education on the role of the Speech Pathologist. Patient's plan of care and golas were communicated as well as scheduling and attendance policies. Recommendations for initial home program were shared. Patient demonstrated understanding and verbalized agreement. - Impression/Summary Laryngeal Penetration: No Tracheal Aspiration: no Patient presents with: Normal swallow at eval Risk of Aspiration: Minimal - Recommendations Solid diet recommendations: Regular Liquid Diet Modification: Thin Pt/Family education and followup with MD: Yes Dysphagia therapy with SAFETY DEPOSIT CLERK: no Information, Precautions and Recommendations: Patient (Written), Patient (Verbal) - Time Total Time: 20 - Plan of Care Strategies to optimize patient understanding include:: ongoing assessment of educational needs, implementation of educational strategies, and re-education. - - -: Thank you for the opportunity to work with this patient and his/her family. Should you have any questions about this patient's plan or progress, I can be reached at [phone].
== END ==
LOC: RAD 08:16
PROVIDERS: ATTEND Internal Medicine Pulmonary Disease
DX: R13.19 Other dysphagia (principal)
CPT/HCPCS: 74230

== ENCOUNTER 2020-03-01 10:36 | Inpatient (IN) | payer MEDICARE, MEDICAID ==
--- NOTE | 2020-03-01 10:51 | ER Document Report ---
ED Medical Screen (RME) - General Stated Complaint: BACK PAIN,WEAKNESS Time Seen by Provider: 03/01/20 10:41 Primary Care Provider: ROXANN GUZMAN MD [Primary Care Provider] - Follow up as needed Mode of Arrival: Wheelchair Information source: Patient Notes: 79-year-old female patient presenting to the emergency department chief complaint of shortness of breath and increased peripheral edema. Patient has a history of COPD and CHF. She states she wears 3.5 L of oxygen at home. She states her work of breathing has increased over the last few days. She was supposed to go see her primary care provider today however they thought that she should come to the emergency department instead. She has not had any recent travel. She denies any fever but reports that she has been "sweating a lot lately". Heart sounds S1-S2 present, normal rate normal rhythm. Lung sounds clear but diminished in the bases. Mildly increased work of breathing. Edema noted to lower extremities. I have greeted and performed a rapid initial assessment of this patient. A comprehensive ED assessment and evaluation of the patient, analysis of test results and completion of the medical decision making process will be conducted by additional ED providers. I have specifically instructed the patient or family members with the patient to immediately return to any nursing staff should anything change in the patient's condition or with their chief complaint. TRAVEL OUTSIDE OF THE [place] IN LAST 30 DAYS: No - Related Data Allergies/Adverse Reactions: adhesive tape Allergy (Verified 12/18/18 16:29) Past Medical History - Past Medical History Cardiac Medical History: Reports: Hx Atrial Fibrillation, Hx Hypertension Pulmonary Medical History: Reports: Hx COPD, Hx Pneumonia Endocrine Medical History: Reports: Hx Hypothyroidism Renal/ Medical History: Denies: Hx Peritoneal Dialysis Malignancy Medical History: Reports: Hx Breast Cancer - Stage III Musculoskeltal Medical History: Reports Hx Arthritis - Rheumatoid, Reports Hx Fibromyalgia Past Surgical History: Reports: Hx Hysterectomy, Hx Oral Surgery - Immunizations Hx Diphtheria, Pertussis, Tetanus Vaccination: Yes Doctor's Discharge - Discharge Referrals: ROXANN GUZMAN MD [Primary Care Provider] - Follow up as needed
[2020-03-01] MEDS ORDERED: ONDANSETRON HCL INJ/PF 4 MG/2 ML SDV IV ONE (11:17)
--- NOTE | 2020-03-01 11:20 | ER Document Report ---
ED Respiratory Problem - General Chief Complaint: Shortness Of Breath Stated Complaint: BACK PAIN,WEAKNESS Time Seen by Provider: 03/01/20 10:41 Mode of Arrival: Wheelchair Information source: Patient Notes: Patient presents complaining of exertional shortness of breath for the past 4 days. Patient states she has had episodes of diaphoresis. Patient reports decreased appetite and decreased energy for the past 3 days. Patient states she has had diarrhea and nausea. Patient states she has chronic back pain and lateral rib pain. Patient denies any worsening of these pain symptoms and that they are typical of her usual pain symptoms. Patient denies any fever or urinary symptoms. Patient does have a history of COPD as well as CHF. Patient states she does weigh herself daily. Patient states she is actually lost 3 pounds recently. Patient attributes this to her decreased appetite and ability to make food for herself due to her decrease in energy and exertional shortness of breath. TRAVEL OUTSIDE OF THE [place] IN LAST 30 DAYS: No - HPI Patient complains to provider of: CHF, COPD, Cough, Short of breath Onset: Other - 4 days Duration: Worse/persistent Quality of pain: Achy Pain Level: 3 Context: Hx CHF, Hx COPD. denies: Recent surgery, Smoker Cough: Nonproductive Associated symptoms: Ankle/leg swelling, Chills, Cough, Extertional dyspnea, Short of breath. denies: Congestion, Fever Similar symptoms previously: Yes Recently seen / treated by doctor: No - Related Data Allergies/Adverse Reactions: adhesive tape Allergy (Verified 12/18/18 16:29) Past Medical History - General Information source: Patient - Social History Smoking Status: Never Smoker Frequency of alcohol use: None Drug Abuse: None Occupation: None Lives with: Alone Family History: Hypertension Patient has homicidal ideation: No - Past Medical History Cardiac Medical History: Reports: Hx Atrial Fibrillation, Hx Congestive Heart Failure, Hx Hypertension Pulmonary Medical History: Reports: Hx COPD, Hx Pneumonia Endocrine Medical History: Reports: Hx Hypothyroidism Renal/ Medical History: Denies: Hx Peritoneal Dialysis Malignancy Medical History: Reports: Hx Breast Cancer - Stage III Musculoskeletal Medical History: Reports Hx Arthritis - Rheumatoid, Reports Hx Fibromyalgia Past Surgical History: Reports: Hx Hysterectomy, Hx Oral Surgery, Hx Thyroid Surgery - Immunizations Hx Diphtheria, Pertussis, Tetanus Vaccination: Yes Hx Pneumococcal Vaccination: 10/14/09 Review of Systems - Review of Systems Constitutional: Chills, Weakness. denies: Fever EENT: No symptoms reported Cardiovascular: denies: Chest pain Respiratory: Cough, Short of breath Gastrointestinal: Diarrhea, Nausea. denies: Abdominal pain, Vomiting Genitourinary: No symptoms reported. denies: Dysuria Female Genitourinary: No symptoms reported Musculoskeletal: Back pain, Leg swelling, Ankle swelling, Other - Lateral and anterior rib tenderness Skin: No symptoms reported Hematologic/Lymphatic: No symptoms reported Neurological/Psychological: No symptoms reported Physical Exam - Vital signs Vitals: Temp 97.8 F 03/01/20 10:42 - General General appearance: Appears well, Alert In distress: None - HEENT Head: Normocephalic, Atraumatic Eyes: Normal Conjunctiva: Normal Nasal: Normal Neck: Normal, Supple. No: Lymphadenopathy - Respiratory Respiratory status: No respiratory distress Chest status: Nontender Breath sounds: Nonproductive cough, Rales - RLL Chest palpation: Normal - Cardiovascular Rhythm: Regular Heart sounds: S1 appreciated, S2 appreciated - Abdominal Inspection: Obese Distension: No distension Bowel sounds: Normal Tenderness: Tender - Tenderness along the lower costal margin. No: McBurney's point, Sales's sign, Guarding - Back Back: Tender - Lumbar paraspinal tenderness - Extremities General upper extremity: Normal inspection, Normal strength General lower extremity: Edema - 3+ edema bilateral lower extremities - Neurological Neuro grossly intact: Yes Cognition: Normal Opal Coma Scale Eye Opening: Spontaneous Opal Coma Scale Verbal: Oriented Opal Coma Scale Motor: Obeys Commands Opal Coma Scale Total: 15 - Psychological Associated symptoms: Normal affect, Normal mood - Skin Skin Temperature: Warm Skin Moisture: Dry Skin Color: Normal Course - Re-evaluation Re-evalutation: 03/01/20 13:[address] Salcedo regarding patient presentation. Recommends consultation with patient's managed care specialist. Provider to bedside, patient with mild tachycardia with heart rate 103, respiratory rate 22, patient does have rales to right lower lobe. Patient pulling off cords to telemetry stating that she cannot lay here in pain. Patient complains of muscle cramps to her legs and is insisting that a staff member stay at bedside and massage her legs. Patient states that she cannot stay in one place as this causes her leg cramps to flareup. Patient states she has had chronic leg cramps since 1987 and typically at home she changes position to help with her pain symptoms. Patient is agreeable with waiting until provider can consult with her managed care specialist. Consulted with Dr. Duarte, Dr. Duarte to bedside for examination. 03/01/20 14:[address] Duarte who recommends having patient admitted at this time. 03/01/20 14:[address] Hull agrees to accept patient as a telemetry admission at this time. - Vital Signs Vital signs: Temp Pulse Resp BP Pulse Ox 98.6 F 110 H 26 H 155/86 H 97 03/01/20 11:02 03/01/20 11:02 03/01/20 13:00 03/01/20 11:02 03/01/20 13:00 - Laboratory Result Diagrams: 03/01/20 12:25 03/01/20 12:25 Laboratory results interpreted by me: 03/01/20 03/01/20 03/01/20 12:25 12:25 12:25 RDW 14.2 H Eos % (Auto) 7.7 H VBG pH Sodium 128.1 L Chloride 94 L Creatinine 0.48 L NT-Pro-B Natriuret Pep 1920 H Total Protein 5.9 L Urine Ketones Ur Leukocyte Esterase Urine Ascorbic Acid 03/01/20 03/01/20 12:53 14:57 RDW Eos % (Auto) VBG pH 7.48 H Sodium Chloride Creatinine NT-Pro-B Natriuret Pep Total Protein Urine Ketones 20 H Ur Leukocyte Esterase TRACE H Urine Ascorbic Acid 20 H Labs- Entire Visit 03/01/20 03/01/20 03/01/20 12:25 12:25 12:25 WBC 6.1 RBC 4.57 Hgb 13.4 Hct 39.0 MCV 85 MCH 29.3 MCHC 34.3 RDW 14.2 H Plt Count 221 Lymph % (Auto) 13.0 Hunt % (Auto) 12.9 Eos % (Auto) 7.7 H Baso % (Auto) 0.7 Absolute Neuts (auto) 4.0 Absolute Lymphs (auto) 0.8 Absolute Monos (auto) 0.8 Absolute Eos (auto) 0.5 Absolute Basos (auto) 0.0 Seg Neutrophils % 65.7 VBG pH VBG pCO2 VBG HCO3 VBG Base Excess Sodium 128.1 L Potassium 4.5 Chloride 94 L Carbon Dioxide 26 Anion Gap 8 BUN 14 Creatinine 0.48 L Est GFR ( Amer) > 60 Est GFR (MDRD) Non-Af > 60 Glucose 94 Calcium 8.7 Magnesium 2.2 Total Bilirubin 0.6 Direct Bilirubin 0.2 Neonat Total Bilirubin Not Reportable Neonat Direct Bilirubin Not Reportable Neonat Indirect Bili Not Reportable AST 33 ALT 28 Alkaline Phosphatase 88 Troponin I 0.035 NT-Pro-B Natriuret Pep 1920 H Total Protein 5.9 L Albumin 3.5 03/01/20 12:53 WBC RBC Hgb Hct MCV MCH MCHC RDW Plt Count Lymph % (Auto) Hunt % (Auto) Eos % (Auto) Baso % (Auto) Absolute Neuts (auto) Absolute Lymphs (auto) Absolute Monos (auto) Absolute Eos (auto) Absolute Basos (auto) Seg Neutrophils % VBG pH 7.48 H VBG pCO2 35.9 VBG HCO3 25.9 VBG Base Excess 2.5 Sodium Potassium Chloride Carbon Dioxide Anion Gap BUN Creatinine Est GFR ( Amer) Est GFR (MDRD) Non-Af Glucose Calcium Magnesium Total Bilirubin Direct Bilirubin Neonat Total Bilirubin Neonat Direct Bilirubin Neonat Indirect Bili AST ALT Alkaline Phosphatase Troponin I NT-Pro-B Natriuret Pep Total Protein Albumin - Diagnostic Test Radiology reviewed: Reports reviewed Discharge - Discharge Clinical Impression: CHF (congestive heart failure) Qualifiers: Heart failure type: unspecified Heart failure chronicity: acute on chronic Qualified Code(s): I50.9 - Heart failure, unspecified Dyspnea Qualifiers: Dyspnea type: unspecified Qualified Code(s): R06.00 - Dyspnea, unspecified Condition: Stable Disposition: ADMITTED INPATIENT Admitting Provider: Della (Hospitalist) Unit Admitted: Telemetry
--- NOTE | 2020-03-01 11:49 | RADIOLOGY REPORT (SQ) ---
EXAM DESCRIPTION: CHEST SINGLE VIEW IMAGES COMPLETED DATE/TIME: 03/01/2020 11:21 am REASON FOR STUDY: shortness of breath, hx of COPD/CHF COMPARISON: 12/18/2018 EXAM PARAMETERS: NUMBER OF VIEWS: One view. TECHNIQUE: Single frontal radiographic view of the chest acquired. RADIATION DOSE: NA LIMITATIONS: Patient rotation. FINDINGS: LUNGS AND PLEURA: Emphysematous change with hyperinflation and flattening of the hemidiaph ragm. Ill-defined right infrahilar opacities, similar to prior. No pleural effusion or pneumothorax . MEDIASTINUM AND HILAR STRUCTURES: Irregular right infrahilar opacities, similar to prior. HEART AND VASCULAR STRUCTURES: Enlarged, stable. Aortic atherosclerosis. BONES: No acute findings. HARDWARE: None in the chest. OTHER: No other significant finding. IMPRESSION: Emphysematous change with ill-defined infrahilar right basilar opacities possibly atelec tasis or infection. Stable enlarged cardiac silhouette. TECHNICAL DOCUMENTATION: JOB ID: [id number] 2010 [employer]- All Rights Reserved Reading location - IP/workstation name: [email or web address]
[2020-03-01 12:53] LABS: ABSOLUTE EOSINOPHILS # (AUTO) 0.5 10^3/uL (0.0-0.6); ABSOLUTE LYMPHOCYTES (AUTO) 0.8 10^3/uL (0.5-4.7); ABSOLUTE MONOCYTES (AUTO) 0.8 10^3/uL (0.1-1.4); BASOPHILS % (AUTO) 0.7 % (0-2); EOSINOPHILS % (AUTO) 7.7 % (0-6); HEMOGLOBIN 13.4 g/dL (12.0-15.5); MEAN CORPUSCULAR HEMOGLOBIN 29.3 pg (27.0-33.4); MEAN CORPUSCULAR HGB CONC 34.3 g/dL (32.0-36.0); MEAN CORPUSCULAR VOLUME 85 fl (80-97); MONOCYTES % (AUTO) 12.9 % (3-13); PLATELET COUNT 221 10^3/uL (150-450); RED BLOOD COUNT 4.57 10^6/uL (3.72-5.28); RED CELL DISTRIBUTION WIDTH 14.2 % (11.5-14.0); SEGMENTED NEUTROPHILS % (AUTO) 65.7 % (42-78); TOTAL CELLS COUNTED % (AUTO) 100 %; WHITE BLOOD COUNT 6.1 10^3/uL (4.0-10.5)
[2020-03-01 13:04] LABS: ALBUMIN 3.5 g/dL (3.5-5.0); ALKALINE PHOSPHATASE 88 U/L (38-126); ANION GAP 8 (5-19); ASPARTATE AMINO TRANSFERASE 33 U/L (14-36); BILIRUBIN,DIRECT 0.2 mg/dL (0.0-0.4); BILIRUBIN,TOTAL 0.6 mg/dL (0.2-1.3); BLOOD UREA NITROGEN 14 mg/dL (7-20); CALCIUM 8.7 mg/dL (8.4-10.2); CARBON DIOXIDE 26 mmol/L (22-30); CHLORIDE 94 mmol/L (98-107); GLUCOSE 94 mg/dL (75-110); POTASSIUM 4.5 mmol/L (3.6-5.0); TOTAL PROTEIN 5.9 g/dL (6.3-8.2)
[2020-03-01 13:11] LABS: VENOUS BLOOD BASE EXCESS 2.5 mmol/L; VENOUS BLOOD HCO3 25.9 mmol/L (20-32); VENOUS BLOOD PCO2 35.9 mmHg (35-63); VENOUS BLOOD PH 7.48 (7.30-7.42)
[2020-03-01 13:18] LABS: TROPONIN I 0.035 ng/mL
[2020-03-01] MEDS ORDERED: DIAZEPAM 2 MG TABLET PO ONE (14:36)
[2020-03-01] MEDS ORDERED: FUROSEMIDE INJ/PF 20 MG/2 ML SDV IV ONE (14:38)
[2020-03-01 15:40] LABS: APPEARANCE,URINE SLIGHTLY-CLOUDY; BILIRUBIN,URINE NEGATIVE (NEGATIVE); COLOR,URINE YELLOW; GLUCOSE, URINE NEGATIVE (NEGATIVE); KETONES,URINE 20 mg/dL (NEGATIVE); LEUKOCYTE ESTERASE,URINE TRACE (NEGATIVE); NITRITE,URINE NEGATIVE (NEGATIVE); PROTEIN,URINE NEGATIVE (NEGATIVE); URINE SPECIFIC GRAVITY 1.005; UROBILINOGEN,URINE NEGATIVE mg/dL (<2.0)
--- NOTE | 2020-03-01 15:50 | PDOC H&P ---
History of Present Illness Admission Date/PCP: 03/01/20 15:14 TRENT JENNINGS MD Patient complains of: Shortness of breath History of Present Illness: HARSH PATE is a 79 year old female with history of CHF, COPD on 3.5 to 4 L, interstitial lung disease, who presents to the hospital with complaints of worsening shortness of breath over the past 3 to 4 days. Her dyspnea is worse on exertion and no significant alleviating factors. Admits to orthopnea. D enies PND. Accompanied by dry chronic cough. Also complains of worsening lower extremity swelling bilaterally. States she takes Lasix at home twice a day and has not been missing her any of her pills. She follows with Dr. Alejandro Duarte who was contacted in the ER upon presentation. Patient denies any chest pain lightheadedness or dizziness. Admits to an episode of diaphoresis. She does not ambulate much and relies on neighbors to bring groceries for her and does not get around much. Denies sick contacts but states that she does leave in the same place with other people were out and about. Past Medical History Cardiac Medical History: Reports: Atrial Fibrillation, Congestive Heart Failure, Hypertension Pulmonary Medical History: Reports: Chronic Obstructive Pulmonary Disease (COPD), Pneumonia Endocrine Medical History: Reports: Hypothyroidism Malignancy Medical History: Reports: Breast Cancer - Stage III Musculoskeltal Medical History: Reports: Arthritis - Rheumatoid, Fibromyalgia Past Surgical History Past Surgical History: Reports: Hysterectomy Social History Lives with: Alone Smoking Status: Never Smoker Frequency of Alcohol Use: None Hx Recreational Drug Use: No Drugs: None Hx Prescription Drug Abuse: No - Advance Directive Resuscitation Status: Full Code Family History Family History: Hypertension Parental Family History Reviewed: Yes Children Family History Reviewed: Unknown Sibling(s) Family History Reviewed.: Unknown Medication/Allergy Home Medications: Albuterol Sulfate [Proair HFA] 2 puff IH Q6HP PRN 01/18/17 Hydrocortisone 5 mg PO DAILY@1500 01/18/17 Hydrocortisone 10 mg PO QAM 01/18/17 Potassium Chloride 10 meq PO DAILY 01/18/17 Tiotropium [place] [Spiriva Respimat] 2 puff IH DAILY 01/18/17 Aspirin [Aspirin 81 mg Chewable Tablet] 81 mg PO DAILY tab.chew 01/21/17 Levofloxacin [Levaquin 750 mg Tablet] 750 mg PO DAILY #7 tablet 01/21/17 Levothyroxine Sodium [Synthroid 0.025 mg Tablet] 0.025 mg PO QAM #30 tablet 01/21/17 Metoprolol Tartrate [Lopressor 25 mg Tablet] 50 mg PO Q12 #60 tablet 01/21/17 Torsemide [Demadex 20 mg Tablet] 10 mg PO QAM #30 tablet 01/21/17 Furosemide 1 tab PO DAILY 05/01/17 Tiotropium [place] [Spiriva Respimat] 2 inh IH QAM 05/01/17 Allergies/Adverse Reactions: adhesive tape Allergy (Verified 12/18/18 16:29) Review of Systems Constitutional: ABSENT: chills, fever(s) Eyes: ABSENT: visual disturbances Nose, Mouth, and Throat: PRESENT: headache(s) Cardiovascular: PRESENT: edema. ABSENT: chest pain Respiratory: PRESENT: cough, dyspnea. ABSENT: sputum Gastrointestinal: PRESENT: diarrhea. ABSENT: abdominal pain, nausea, vomiting Genitourinary: ABSENT: difficulty urinating Integumentary: PRESENT: diaphoresis Neurological: ABSENT: dizziness Psychiatric: ABSENT: hallucinations Endocrine: ABSENT: cold intolerance Allergic/Immunologic: PRESENT: other - Denies rhinorrhea Physical Exam Vital Signs: Temp Pulse Resp BP Pulse Ox 98.6 F 110 H 26 H 155/86 H 97 03/01/20 11:02 03/01/20 11:02 03/01/20 13:00 03/01/20 11:02 03/01/20 13:00 Intake & Output 02/29/20 03/01/20 03/02/20 06:59 06:59 06:59 Weight 93.5 kg General appearance: PRESENT: no acute distress, cooperative Head exam: PRESENT: normocephalic Eye exam: ABSENT: periorbital swelling, scleral icterus Neck exam: PRESENT: JVD Respiratory exam: PRESENT: crackles - Diffusely throughout lung schroeder, unlabored. ABSENT: tachypnea, wheezes Cardiovascular exam: PRESENT: +S1, +S2, tachycardia. ABSENT: irregular rhythm GI/Abdominal exam: PRESENT: soft. ABSENT: rebound, rigid, tenderness Extremities exam: PRESENT: +2 edema - Bilateral lower extremities Neurological exam: PRESENT: alert, awake Psychiatric exam: ABSENT: agitated, anxious Focused psych exam: ABSENT: pressured speech Skin exam: ABSENT: jaundice Results Laboratory Results: 03/01/20 12:25 03/01/20 12:25 03/01/20 03/01/20 03/01/20 12:25 12:25 12:53 WBC 6.1 RBC 4.57 Hgb 13.4 Hct 39.0 MCV 85 MCH 29.3 MCHC 34.3 RDW 14.2 H Plt Count 221 Seg Neutrophils % 65.7 VBG pH 7.48 H VBG pCO2 35.9 VBG HCO3 25.9 VBG Base Excess 2.5 Sodium 128.1 L Potassium 4.5 Chloride 94 L Carbon Dioxide 26 Anion Gap 8 BUN 14 Creatinine 0.48 L Est GFR ( Amer) > 60 Glucose 94 Calcium 8.7 Magnesium 2.2 Total Bilirubin 0.6 AST 33 Alkaline Phosphatase 88 Total Protein 5.9 L Albumin 3.5 03/01/20 12:25 Troponin I 0.035 NT-Pro-B Natriuret Pep 1920 H Impressions: Chest X-Ray 03/01/20 10:48 IMPRESSION: Emphysematous change with ill-defined infrahilar right basilar opacities possibly atelectasis or infection. Stable enlarged cardiac silhouette. Assessment and Plan - Diagnosis (1) Acute on chronic diastolic heart failure Is this a current diagnosis for this admission?: Yes Plan: BNP elevated needs crackles, and significant lower extremity swelling. We will start diuresis with Lasix 40 mg IV twice daily. Monitor on telemetry. Fluid restriction. Cardiology consult. Salt restriction. BP control. Last echo in 2017 shows EF of over 60%. We will repeat an echo at this time to reevaluate EF. Chest x-ray showing some irregular opacities which may be secondary to radiation from right breast cancer or interstitial lung disease. Will get a CT of the chest for better visualization. Check COVID-19 test. (2) Acute and chronic respiratory failure with hypoxia Is this a current diagnosis for this admission?: Yes Plan: Uses 3.5 to 4 L nasal cannula at home due to COPD and history of interstitial lung disease. Currently requiring oxygen. May be a component of CHF. O2 supplementation as needed. (3) Hyponatremia Is this a current diagnosis for this admission?: Yes Plan: Sodium of 128 on admission. Likely secondary to hypervolemia. Check serum osmolarity. Monitor BMP response to diuresis. (4) Elevated troponin Is this a current diagnosis for this admission?: Yes Plan: Suspect type II NSTEMI from demand perfusion mismatch from CHF exacerbation. Will check a repeat troponin. EKG shows no evidence of ACS otherwise. (5) COPD (chronic obstructive pulmonary disease) Qualifiers: COPD type: emphysema Emphysema type: unspecified Qualified Code(s): J43.9 - Emphysema, unspecified Is this a current diagnosis for this admission?: Yes Plan: Oxygen supplementation as needed. Not acutely exacerbated. Nebulizers as needed. (6) Paroxysmal atrial fibrillation Is this a current diagnosis for this admission?: Yes Plan: Currently in sinus rhythm. Continue patient's home regimen. (7) Obesity Qualifiers: Obesity type: unspecified obesity type Obesity classification: adult class 2 (BMI 35 - 39.9) Serious obesity comorbidity presence: unspecified whether serious comorbidity present Body mass index: BMI 38.0-38.9 Qualified Code(s): E66.9 - Obesity, unspecified; Z68.38 - Body mass index (BMI) 38.0-38.9, adult Is this a current diagnosis for this admission?: Yes - Time Time Spent with patient: 35 or more minutes
[2020-03-01] MEDS ORDERED: ACETAMINOPHEN 325 MG TABLET PO PRN (15:55)
[2020-03-01] MEDS ORDERED: ONDANSETRON HCL INJ/PF 4 MG/2 ML SDV IV PRN (15:55)
[2020-03-01] MEDS ORDERED: LEVALBUTEROL HCL NEB 1.25 MG/3 ML AMPUL NEB PRN (16:04)
[2020-03-01] MEDS ORDERED: TRAMADOL HCL 50 MG TABLET PO PRN (16:29)
--- NOTE | 2020-03-01 16:33 | RADIOLOGY REPORT (SQ) ---
EXAM DESCRIPTION: CT CHEST WITHOUT IMAGES COMPLETED DATE/TIME: 03/01/2020 4:14 pm REASON FOR STUDY: Hypoxia, ILD versus CHF COMPARISON: Same day radiograph, CT 06/04/2015 TECHNIQUE: CT scan performed of the chest without intravenous contrast. Images reviewed with lung, soft tissue and bone windows. Reconstructed coronal and sagittal MPR images reviewed. All images st ored on PACS. All CT scanners at this facility use dose modulation, iterative reconstruction, and/or weight based d osing when appropriate to reduce radiation dose to as low as reasonably achievable (ALARA). [facility]: Dose Right [facility]: CareDose [facility]: Dose Right [facility]: Teradose 4D [facility]: Smart Ziliko RADIATION DOSE: CT Rad equipment meets quality standard of care and radiation dose reduction techniq ues were employed. CTDIvol: 10.3 mGy. DLP: 399 mGy-cm. mGy. LIMITATIONS: No technical limitations. FINDINGS: LUNGS AND PLEURA: Patchy right lower lobe consolidation and ground-glass attenuation with small right-sided pleural effusion. Emphysematous change with hyperinflation and flattening of the h emidiaphragms with increased AP diameter. No pneumothorax. HILAR AND MEDIASTINAL STRUCTURES: Shotty mediastinal nodes with few mildly enlarged right hilar and m ediastinal lymph nodes. For reference there is a pretracheal node measuring 12 mm in short axis (ser ies 3, image 20). HEART AND VASCULAR STRUCTURES: Scattered coronary atherosclerosis. No pericardial effusion. Normal heart size. UPPER ABDOMEN: No significant findings. Limited exam. THYROID AND OTHER SOFT TISSUES: No masses. No adenopathy. BONES: Chronic T6 and T8 compression deformities. No acute bony abnormality. No discrete lytic or b lastic osseous lesions. Multiple chronic right-sided rib fractures. HARDWARE: None in the chest. OTHER: No other significant findings. IMPRESSION: 1. Patchy right basilar consolidation and ground-glass attenuation, likely infectious/i nflammatory. Trace right pleural effusion. Few enlarged mediastinal nodes, likely reactive. 2. Stable enlarged pulmonary artery suggestive of elevated pulmonary arterial pressures. No overt p ulmonary edema. 3. Emphysema. TECHNICAL DOCUMENTATION: JOB ID: [id number] Quality ID # [id number]: Final reports with documentation of one or more dose reduction techniques (e.g., Au tomated exposure control, adjustment of the mA and/or kV according to patient size, use of iterative reconstruction technique) 2010 [employer]- All Rights Reserved Reading location - IP/workstation name: [email or web address]
--- NOTE | 2020-03-01 17:03 | PDOC CONSULTATION ---
Consultation Consult Date: 03/01/20 Attending physician:: ANIYA HULL Provider Consulted: BERNADETTE WILKINS Consult reason:: CHF History of Present Illness Admission Date/PCP: 03/01/20 15:14 TRENT JENNINGS MD History of Present Illness: HARSH PATE is a 79 year old female with history of hypertension, obesity, severe COPD/ASD on oxygen, stage III breast cancer status post chemotherapy and radiation in 1987 and 1988, hypothyroidism, chronic lower extremity edema/lymphedema, moderate to severe pulmonary hypertension on echocardiogram in March 2019, hypokalemia, asthma, diastolic dysfunction who returns called my office this morning complaining of increased in her LE edema associated with dyspnea at rest and during mild exertion. She denies neil chest pain and palpitations. She states that she is very compliant with diet and medications. Physical exam on 03/01/20: GENERAL: Pleasant and conversational. Obese. Oriented x3 with normal mood. M ildly dyspneic with normal conversation. Well groomed and well developed. HEENT: Normocephalic, atraumatic. Pupils equal. Sclerae anicteric. Oropharynx moist. NECK: Difficult to evaluate for JVD due to her body habitus. No carotid bruits. LUNGS: Mild, bibasilar crackles. Normal respiratory effort without the use of accessory muscles or intercostal retractions. CARDIOVASCULAR: Regular rate and rhythm, normal S1 and S2 without murmurs, rubs, or gallops. PMI not displaced. EXTREMITIES: 2-3+ pitting edema bilaterally, no cyanosis, no clubbing. +2 pulses femoral and pedal pulses bilaterally. SKIN: No lesions or rashes. MUSCULOSKELETAL: No chest tenderness to palpation. NEUROLOGIC: Nonfocal. No gross sensory or motor deficits bilateral upper or lower extremities. Cardiac studies: Echocardiogram on 03/25/19: -LV is normal in size. -Mild concentric LVH. -EF 60-65%. -Grade 2 diastolic dysfunction. -Markedly elevated filling pressures. -No wall motion normalities. -Mild MR, mild TR, mild PI. -Mildly dilated aortic root at 3.5 cm. -Severely elevated RVSP estimated between 63 and 68 mmHg after injection of Definity however the TR envelope is poorly defined therefore this measure might not be completely accurate. Past Medical History Cardiac Medical History: Reports: Atrial Fibrillation, Congestive Heart Failure, Hypertension Pulmonary Medical History: Reports: Chronic Obstructive Pulmonary Disease (COPD), Pneumonia Endocrine Medical History: Reports: Hypothyroidism Malignancy Medical History: Reports: Breast Cancer - Stage III Musculoskeltal Medical History: Reports: Arthritis - Rheumatoid, Fibromyalgia Past Surgical History Past Surgical History: Reports: Hysterectomy Social History Lives with: Alone Smoking Status: Never Smoker Frequency of Alcohol Use: None Hx Recreational Drug Use: No Drugs: None Hx Prescription Drug Abuse: No - Advance Directive Resuscitation Status: Full Code Family History Family History: Hypertension Parental Family History Reviewed: Yes Children Family History Reviewed: Yes Sibling(s) Family History Reviewed.: Yes Medication/Allergy Home Medications: Albuterol Sulfate [Proair HFA] 2 puff IH Q6HP PRN 01/18/17 Aspirin [Aspirin 81 mg Chewable Tablet] 81 mg PO DAILY tab.chew 01/21/17 Levothyroxine Sodium [Tirosint] 137 mcg PO Q6AM 03/01/20 Lisinopril [Prinivil 10 mg Tablet] 10 mg PO DAILY 03/01/20 Nitroglycerin [Nitro-Dur 10 mg (0.4MG/Hr) Transdermal Patch] 1 patch TD QAM 03/01/20 Umeclidinium Brm/Vilanterol Tr [Anoro Ellipta 62.5-25 Mcg INH] 1 each IH DAILY 03/01/20 Allergies/Adverse Reactions: adhesive tape Allergy (Verified 12/18/18 16:29) Physical Exam Vital Signs: Temp Pulse Resp BP Pulse Ox 98.6 F 110 H 26 H 155/86 H 97 03/01/20 11:02 03/01/20 11:02 03/01/20 13:00 03/01/20 11:02 03/01/20 13:00 Intake & Output 02/29/20 03/01/20 03/02/20 06:59 06:59 06:59 Weight 93.5 kg Results Laboratory Results: 03/01/20 12:25 03/01/20 12:25 03/01/20 03/01/20 03/01/20 12:25 12:25 12:53 WBC 6.1 RBC 4.57 Hgb 13.4 Hct 39.0 MCV 85 MCH 29.3 MCHC 34.3 RDW 14.2 H Plt Count 221 Seg Neutrophils % 65.7 VBG pH 7.48 H VBG pCO2 35.9 VBG HCO3 25.9 VBG Base Excess 2.5 Sodium 128.1 L Potassium 4.5 Chloride 94 L Carbon Dioxide 26 Anion Gap 8 BUN 14 Creatinine 0.48 L Est GFR ( Amer) > 60 Glucose 94 Calcium 8.7 Magnesium 2.2 Total Bilirubin 0.6 AST 33 Alkaline Phosphatase 88 Total Protein 5.9 L Albumin 3.5 Urine Color Urine Appearance Urine pH Ur Specific [place] Urine Protein Urine Glucose (UA) Urine Ketones Urine Blood Urine Nitrite Ur Leukocyte Esterase Urine WBC (Auto) Urine RBC (Auto) 03/01/20 14:57 WBC RBC Hgb Hct MCV MCH MCHC RDW Plt Count Seg Neutrophils % VBG pH VBG pCO2 VBG HCO3 VBG Base Excess Sodium Potassium Chloride Carbon Dioxide Anion Gap BUN Creatinine Est GFR ( Amer) Glucose Calcium Magnesium Total Bilirubin AST Alkaline Phosphatase Total Protein Albumin Urine Color YELLOW Urine Appearance SLIGHTLY-CLOUDY Urine pH 6.0 Ur Specific [place] 1.005 Urine Protein NEGATIVE Urine Glucose (UA) NEGATIVE Urine Ketones 20 H Urine Blood NEGATIVE Urine Nitrite NEGATIVE Ur Leukocyte Esterase TRACE H Urine WBC (Auto) 1 Urine RBC (Auto) 1 03/01/20 12:25 Troponin I 0.035 NT-Pro-B Natriuret Pep 1920 H Impressions: Chest CT 03/01/20 00:00 IMPRESSION: 1. Patchy right basilar consolidation and ground-glass attenuation, likely infectious/inflammatory. Trace right pleural effusion. Few enlarged mediastinal nodes, likely reactive. 2. Stable enlarged pulmonary artery suggestive of elevated pulmonary arterial pressures. No overt pulmonary edema. 3. Emphysema. Chest X-Ray 03/01/20 10:48 IMPRESSION: Emphysematous change with ill-defined infrahilar right basilar opacities possibly atelectasis or infection. Stable enlarged cardiac silhouette. Assessment & Plan - Diagnosis (1) Acute on chronic diastolic heart failure Plan: The patient has clinical and cardiac markers consistent with fluid overload. Recommendations: -Agree with diuretic plan by Dr. Hull. -Agree with repeating echocardiogram. -Replace electrolytes as needed. -Restrict fluids to 1500 ml daily. -Strict intake and output. -Low sodium diet. -Daily BMP. (2) Elevated troponin Plan: Her initial troponin is in the indeterminate range but still not diagnostic. This elevation may be just secondary to LV strain from both HF and her pulmonary hypertension. Recommendations: -Continue trending cardiac enzymes. (3) COPD (chronic obstructive pulmonary disease) Qualifiers: COPD type: emphysema Emphysema type: unspecified Qualified Code(s): J43.9 - Emphysema, unspecified Plan: Continue with outpatient management.
[2020-03-01] MEDS ORDERED: FUROSEMIDE INJ/PF 40 MG/4 ML SDV IV SCH (18:00)
--- NOTE | 2020-03-01 20:15 | RADIOLOGY REPORT (SQ) ---
INDICATION: b/l LE swelling. PROCEDURE: Real-time grayscale, color, and pulse Doppler ultrasound imaging of the bilateral lower extremity deep venous system was performed. 73 images. COMPARISON: None FINDINGS: The common femoral, superficial femoral, and popliteal veins demonstrate normal compressibility, phasic flow, augmentation and novoa scale evaluation. There is no evidence of intraluminal thrombus . The visualized deep calf veins appear patent. IMPRESSION: No evidence for acute deep venous thrombus from the common femoral to the popliteal veins.
[2020-03-01] MEDS: FUROSEMIDE INJ/PF 100 MG/10 ML SDV IV SCH (21:51)
[2020-03-01] MEDS: POTASSIUM CHLORIDE 10 MEQ TABLET.ER PO SCH (21:57)
[2020-03-01] MEDS ORDERED: FUROSEMIDE INJ/PF 100 MG/10 ML SDV IV ONE (22:00)
[2020-03-02 06:18] LABS: ANION GAP 10 (5-19); BLOOD UREA NITROGEN 13 mg/dL (7-20); CALCIUM 8.8 mg/dL (8.4-10.2); CARBON DIOXIDE 28 mmol/L (22-30); CHLORIDE 94 mmol/L (98-107); GLUCOSE 79 mg/dL (75-110); POTASSIUM 4.4 mmol/L (3.6-5.0)
--- NOTE | 2020-03-02 06:56 | XCELERA REPORT ---
[address] [address] Transthoracic Echocardiogram Report Name: HARSH PATE Age: 79 yrs Gender: Female : 1940 Patient Status: Inpatient Patient Location: [address] [place], [place] [id number] Study Date: 03/01/2020 05:20 PM Height: 61 in Weight: 206 lb BSA: 1.9 m2 Procedure: A complete two-dimensional transthoracic echocardiogram was performed (2D, M-mode, spectral and color flow Doppler). The study was technically limited with all images being suboptimal in quality. Reason For Study: chf. Dr Duarte Ordering Physician: ANIYA GUY Performed By: Rekha Mehta Interpretation Summary The left ventricle is grossly normal size. Left ventricular systolic function is normal. The Ejection Fraction estimate is 60-65%. LV diastolic function could not be adequately assessed. No gross regional wall motion abnormalities. There is no thrombus. Borderline RVE with moderately reduced systolic function. Trace MR, moderate TR, moderate PI. Severe pulmonary hypertension with pressures estimated between 88 and 93 mmHg. When compared to a prior study dated AUG 31, pulmonary pressure is now severe. MMode/2D Measurements & Calculations RVDd: 3.1 cm LVIDd: 4.4 cm FS: 36.5 % Ao root diam: 2.8 cm IVSd: 1.1 cm LVIDs: 2.8 cm EDV(Teich): 87.7 ml Ao root area: 6.3 cm2 LVPWd: 1.0 cm ESV(Teich): 29.4 ml LA dimension: 3.4 cm EF(Teich): 66.5 % Doppler Measurements & Calculations MV E max antonio: MV P1/2t max antonio: Ao V2 max: LV V1 max P.4 cm/sec 76.4 cm/sec 129.3 cm/sec 4.7 mmHg MV A max antonio: MV P1/2t: 66.7 msec Ao max PG: LV V1 max: 83.6 cm/sec MVA(P1/2t): 3.3 cm2 6.7 mmHg 108.7 cm/sec MV E/A: 1.2 MV dec slope: 335.7 cm/sec2 MV dec time: 0.25 sec PA V2 max: PI end-d antonio: TR max antonio: MV P1/2t-pr_phl: 81.0 cm/sec 207.7 cm/sec 454.7 cm/sec 66.7 msec PA max P.6 mmHg TR max P.7 mmHg Left Ventricle The left ventricle is grossly normal size. Left ventricular systolic function is normal. The Ejection Fraction estimate is 60-65%. LV diastolic function could not be adequately assessed. No gross regional wall motion abnormalities. There is no thrombus. Right Ventricle Borderline right ventricular enlargement. The right ventricular systolic function is moderately reduced. Atria The right atrium is normal. The left atrial size is normal. The interatrial septum is intact with no evidence for an atrial septal defect. Mitral Valve There is mild mitral leaflet calcification. There is no evidence of mitral valve prolapse. There is no mitral valve stenosis. There is a trace amount of mitral regurgitation. Aortic Valve The aortic valve is grossly normal. There is no aortic valve stenosis. No aortic regurgitation is present. Tricuspid Valve The tricuspid valve is not well visualized, but is grossly normal. There is no tricuspid valve prolapse. There is no tricuspid stenosis. There is a moderate amount of tricuspid regurgitation. There is servere pulmonary hypertension by echo. Best estimated RVSP is approximately 88-93 mm/Hg. Pulmonic Valve The pulmonic valve is not well seen, but is grossly normal. There is no pulmonic valvular stenosis. There is a moderate amount of pulmonic regurgitation. Great Vessels The aortic root is normal size. The inferior vena cava appeared normal. Effusions There is no pericardial effusion. There is no pleural effusion. : ANIYA GUY Antonio
--- NOTE | 2020-03-02 07:52 | EKG REPORT ---
SEVERITY:- NORMAL ECG - SINUS RHYTHM : Confirmed by: Nohemy Brenner MD 02-Mar-2020 07:51:07
[2020-03-02] MEDS ORDERED: LEVOTHYROXINE SODIUM 0.05 MG TABLET PO SCH (09:00)
[2020-03-02] MEDS: NITROGLYCERIN 10 MG (0.4 MG/HR) PATCH.TD24 TD SCH (09:43)
[2020-03-02] MEDS: LISINOPRIL 10 MG TABLET PO SCH (09:44)
[2020-03-02] MEDS: FUROSEMIDE INJ/PF 100 MG/10 ML SDV IV SCH ×2 (09:44→17:30)
[2020-03-02] MEDS: POTASSIUM CHLORIDE 10 MEQ TABLET.ER PO SCH ×2 (09:44→21:30)
[2020-03-02] MEDS: AZITHROMYCIN 250 MG TABLET PO SCH (09:45)
[2020-03-02] MEDS: ENOXAPARIN SODIUM INJ 40 MG/0.4 ML DISP.SYRIN SUBCUT SCH (09:45)
[2020-03-02] MEDS: MAGNESIUM OXIDE 400 MG TABLET PO SCH ×2 (09:45→17:29)
[2020-03-02] MEDS: CEFTRIAXONE 2 GM/D5W RTU 2 GM/50 ML RTUPB IV SCH (09:46)
--- NOTE | 2020-03-02 10:32 | PDOC PROGRESS REPORT ---
Subjective Progress Note for:: 03/02/20 Subjective:: HARSH PATE is a 79 year old female with history of hypertension, obesity, severe COPD on oxygen, stage III breast cancer status post chemotherapy and radiation in 1987 and 1988, hypothyroidism, chronic lower extremity edema/lymphedema, moderate to severe pulmonary hypertension on echocardiogram in March 2019, hypokalemia, asthma, diastolic dysfunction who returns called my office this morning complaining of increased in her LE edema associated with dyspnea at rest and during mild exertion. She denies neil chest pain and palpitations. She states that she is very compliant with diet and medications. 03/02/2020: The patient had an uneventful night and is found sitting up in a chair without new cardiac complaints. She continues to complain of significant lower extremity cramps and continues to be short of breath. She has only received 1 dose of IV Lasix today and there is now output documented yet in her chart. Her telemetry shows episodes of sinus tachycardia. Physical exam on 03/02/20: GENERAL: Pleasant and conversational. Obese. Oriented x3 with normal mood. Mildly dyspneic with normal conversation. Well groomed and well developed. HEENT: Normocephalic, atraumatic. Pupils equal. Sclerae anicteric. Oropharynx moist. NECK: Difficult to evaluate for JVD due to her body habitus. No carotid bruits. LUNGS: Mild, bibasilar crackles. Normal respiratory effort without the use of accessory muscles or intercostal retractions. CARDIOVASCULAR: Regular rate and rhythm, normal S1 and S2 without murmurs, rubs, or gallops. PMI not displaced. EXTREMITIES: 2-3+ pitting edema bilaterally, no cyanosis, no clubbing. +2 pulses femoral and pedal pulses bilaterally. SKIN: No lesions or rashes. MUSCULOSKELETAL: No chest tenderness to palpation. NEUROLOGIC: Nonfocal. No gross sensory or motor deficits bilateral upper or lower extremities. Cardiac studies: Echocardiogram on 03/01/2020: -LV is normal in size. -EF 60 to 65%. -Diastolic function not adequately assessed. -Borderline RVE with moderately reduced systolic function. -Trace MR, moderate TR, moderate PI. -Severe pulmonary hypertension with pressures estimated between 88 and 93 mmHg. Echocardiogram on 03/25/19: -LV is normal in size. -Mild concentric LVH. -EF 60-65%. -Grade 2 diastolic dysfunction. -Markedly elevated filling pressures. -No wall motion normalities. -Mild MR, mild TR, mild PI. -Mildly dilated aortic root at 3.5 cm. -Severely elevated RVSP estimated between 63 and 68 mmHg after injection of Definity however the TR envelope is poorly defined therefore this measure might not be completely accurate. Reason For Visit: HEART FAILURE Physical Exam Vital Signs: Temp Pulse Resp BP Pulse Ox 97.7 F 118 H 17 153/66 H 91 L 03/01/20 21:01 03/02/20 02:00 03/01/20 21:01 03/01/20 21:01 03/01/20 21:01 Intake & Output 03/01/20 03/02/20 03/03/20 06:59 06:59 06:59 Weight 93.5 kg Results Laboratory Results: 03/01/20 12:25 03/02/20 05:12 03/01/20 03/01/20 03/01/20 12:25 12:25 12:53 WBC 6.1 RBC 4.57 Hgb 13.4 Hct 39.0 MCV 85 MCH 29.3 MCHC 34.3 RDW 14.2 H Plt Count 221 Seg Neutrophils % 65.7 VBG pH 7.48 H VBG pCO2 35.9 VBG HCO3 25.9 VBG Base Excess 2.5 Sodium 128.1 L Potassium 4.5 Chloride 94 L Carbon Dioxide 26 Anion Gap 8 BUN 14 Creatinine 0.48 L Est GFR ( Amer) > 60 Glucose 94 Serum Osmolality Calcium 8.7 Magnesium 2.2 Total Bilirubin 0.6 AST 33 Alkaline Phosphatase 88 Total Protein 5.9 L Albumin 3.5 Urine Color Urine Appearance Urine pH Ur Specific [place] Urine Protein Urine Glucose (UA) Urine Ketones Urine Blood Urine Nitrite Ur Leukocyte Esterase Urine WBC (Auto) Urine RBC (Auto) 03/01/20 03/01/20 03/02/20 14:57 16:45 05:12 WBC RBC Hgb Hct MCV MCH MCHC RDW Plt Count Seg Neutrophils % VBG pH VBG pCO2 VBG HCO3 VBG Base Excess Sodium 131.7 L Potassium 4.4 Chloride 94 L Carbon Dioxide 28 Anion Gap 10 BUN 13 Creatinine 0.50 L Est GFR ( Amer) > 60 Glucose 79 Serum Osmolality 271 L Calcium 8.8 Magnesium 1.8 Total Bilirubin AST Alkaline Phosphatase Total Protein Albumin Urine Color YELLOW Urine Appearance SLIGHTLY-CLOUDY Urine pH 6.0 Ur Specific [place] 1.005 Urine Protein NEGATIVE Urine Glucose (UA) NEGATIVE Urine Ketones 20 H Urine Blood NEGATIVE Urine Nitrite NEGATIVE Ur Leukocyte Esterase TRACE H Urine WBC (Auto) 1 Urine RBC (Auto) 1 03/01/20 03/01/20 12:25 15:45 Troponin I 0.035 0.026 NT-Pro-B Natriuret Pep 1920 H Impressions: Chest CT 03/01/20 00:00 IMPRESSION: 1. Patchy right basilar consolidation and ground-glass attenuation, likely infectious/inflammatory. Trace right pleural effusion. Few enlarged mediastinal nodes, likely reactive. 2. Stable enlarged pulmonary artery suggestive of elevated pulmonary arterial pressures. No overt pulmonary edema. 3. Emphysema. Venous Doppler Study 03/01/20 00:00 IMPRESSION: No evidence for acute deep venous thrombus from the common femoral to the popliteal veins. Chest X-Ray 03/01/20 10:48 IMPRESSION: Emphysematous change with ill-defined infrahilar right basilar opacities possibly atelectasis or infection. Stable enlarged cardiac silhouette. 03/01/20 12:25 03/02/20 05:12 MCV 85 fl (80-97) 03/01/20 12:25 MCH 29.3 pg (27.0-33.4) 03/01/20 12:25 MCHC 34.3 g/dL (32.0-36.0) 03/01/20 12:25 RDW 14.2 % (11.5-14.0) H 03/01/20 12:25 Seg Neutrophils % 65.7 % (42-78) 03/01/20 12:25 VBG pH 7.48 (7.30-7.42) H 03/01/20 12:53 VBG pCO2 35.9 mmHg (35-63) 03/01/20 12:53 VBG HCO3 25.9 mmol/L (20-32) 03/01/20 12:53 VBG Base Excess 2.5 mmol/L 03/01/20 12:53 Chloride 94 mmol/L (98-107) L 03/02/20 05:12 Carbon Dioxide 28 mmol/L (22-30) 03/02/20 05:12 Anion Gap 10 (5-19) 03/02/20 05:12 Est GFR ( Amer) > 60 (>60) 03/02/20 05:12 Glucose 79 mg/dL (75-110) 03/02/20 05:12 Serum Osmolality 271 mOsm/kg (275-301) L 03/01/20 16:45 Calcium 8.8 mg/dL (8.4-10.2) 03/02/20 05:12 Magnesium 1.8 mg/dL (1.6-2.3) 03/02/20 05:12 Total Bilirubin 0.6 mg/dL (0.2-1.3) 03/01/20 12:25 AST 33 U/L (14-36) 03/01/20 12:25 Alkaline Phosphatase 88 U/L (38-126) 03/01/20 12:25 Total Protein 5.9 g/dL (6.3-8.2) L 03/01/20 12:25 Albumin 3.5 g/dL (3.5-5.0) 03/01/20 12:25 Urine Color YELLOW 03/01/20 14:57 Urine Appearance SLIGHTLY-CLOUDY 03/01/20 14:57 Urine pH 6.0 (5.0-9.0) 03/01/20 14:57 Ur Specific [place] 1.005 03/01/20 14:57 Urine Protein NEGATIVE mg/dL (NEGATIVE) 03/01/20 14:57 Urine Glucose (UA) NEGATIVE mg/dL (NEGATIVE) 03/01/20 14:57 Urine Ketones 20 mg/dL (NEGATIVE) H 03/01/20 14:57 Urine Blood NEGATIVE (NEGATIVE) 03/01/20 14:57 Urine Nitrite NEGATIVE (NEGATIVE) 03/01/20 14:57 Ur Leukocyte Esterase TRACE (NEGATIVE) H 03/01/20 14:57 Urine WBC (Auto) 1 /HPF 03/01/20 14:57 Urine RBC (Auto) 1 /HPF 03/01/20 14:57 03/01/20 03/01/20 12:25 15:45 Troponin I 0.035 0.026 NT-Pro-B Natriuret Pep 1920 H Current Medication List Generic Name Dose Route Start Last Admin Trade Name Freq PRN Reason Stop Dose Admin Acetaminophen 650 mg 03/01/20 15:55 03/01/20 16:53 Tylenol 325 Mg Tablet PO 03/31/20 15:54 650 mg Q4HP PRN Administration pain or temp greater than 101F Enoxaparin Sodium 40 mg 03/02/20 10:00 Lovenox Inj 40 Mg/0.4 Ml Disp.Syrin SUBCUT 04/01/20 09:59 DAILY RATNA Furosemide 60 mg 03/01/20 18:00 03/01/20 21:51 Lasix Inj/Pf 100 Mg/10 Ml Sdv IV 03/31/20 17:59 Not Given BID RATNA Levalbuterol HCl 1.25 mg 03/01/20 16:04 Xopenex Neb 1.25 Mg/3 Ml Ampul NEB 03/31/20 16:03 RTQ6HP PRN SHORTNESS OF BREATH Ondansetron HCl 4 mg 03/01/20 15:55 Zofran Inj/Pf 4 Mg/2 Ml Sdv IV 03/31/20 15:54 Q8HP PRN FOR NAUSEA/VOMITING Potassium Chloride 20 meq 03/01/20 22:00 03/01/20 21:57 Klor-Con 10 Meq Tablet Er PO 03/31/20 21:59 20 meq Q12 RATNA Administration Sodium Chloride 2.5 ml 03/01/20 22:00 03/01/20 21:44 Saline Flush 2.5 Ml Monoject Prefil Syrin IV 03/31/20 21:59 Not Given Q8 RATNA Tramadol HCl 50 mg 03/01/20 16:29 03/01/20 18:47 Ultram 50 Mg Tablet PO 03/08/20 16:28 50 mg Q8HP PRN Administration FOR BREAKTHROUGH PAIN Discontinued Medications Generic Name Dose Route Start Last Admin Trade Name Freq PRN Reason Stop Dose Admin Diazepam 2 mg 03/01/20 14:36 03/01/20 14:45 Valium 2 Mg Tablet PO 03/01/20 14:37 2 mg NOW ONE Administration Furosemide 10 mg 03/01/20 14:38 03/01/20 14:44 Lasix Inj/Pf 20 Mg/2 Ml Sdv IV 03/01/20 14:39 10 mg NOW ONE Administration Furosemide 60 mg 03/01/20 22:00 03/01/20 21:57 Lasix Inj/Pf 100 Mg/10 Ml Sdv IV 03/01/20 22:01 60 mg NOW ONE Administration Ondansetron HCl 4 mg 03/01/20 11:17 03/01/20 12:14 Zofran Inj/Pf 4 Mg/2 Ml Sdv IV 03/01/20 11:18 Not Given NOW ONE Assessment & Plan - Diagnosis (1) Acute on chronic diastolic heart failure Is this a current diagnosis for this admission?: Yes Plan: The patient continues to be fluid overloaded this morning. She also has a component of right ventricular failure secondary to her pulmonary hypertension. Recommendations: -Continue with current medical management. -Replace electrolytes as needed. -Restrict fluids to 1500 ml daily. -Strict intake and output. -Low sodium diet. -Daily BMP. (2) Elevated troponin Is this a current diagnosis for this admission?: Yes Plan: Her initial troponin is in the indeterminate range and is now downtrending. The patient is free of angina and angina equivalents. This elevation may be just secondary to LV strain from both HF and her pulmonary hypertension. Recommendations: -Continue trending cardiac enzymes. (3) COPD (chronic obstructive pulmonary disease) Qualifiers: COPD type: emphysema Emphysema type: unspecified Qualified Code(s): J43.9 - Emphysema, unspecified Is this a current diagnosis for this admission?: Yes Plan: Continue with outpatient management. Recommendations: -We will defer further management to primary team. (4) Pulmonary hypertension Plan: The patient has worsening pulmonary hypertension which is now in the severe range with estimated pressures up to 93 mmHg by echocardiogram yesterday. She is followed by Dr. Symone Somers with [facility] however her work-up to include VQ scan and sleep study was put on hold due to COVID-19 restrictions. I did mention to her the possibility of a consult to the pulmonary hypertension clinic at [facility] due to the fact that, despite her age, she is very active and functional and wishes to remain the same. Recommendations: -Continue with diuresis. -She will continue to follow-up with Dr. Somers in the outpatient setting. -We will consider an outpatient consult to the pulmonary hypertension clinic at the [facility] after discussing the case with Dr. Somers.
[2020-03-02] MEDS ORDERED: CYCLOBENZAPRINE HCL 10 MG TABLET PO PRN (14:22)
--- NOTE | 2020-03-02 14:22 | PDOC PROGRESS REPORT ---
Subjective Progress Note for:: 03/02/20 Subjective:: Patient is still having some shortness of breath but states that is improved since yesterday. Unfortunately I's and O's were not adequately recorded as patient has been urinating in the toilet. Discussed with patient the necessity of recording adequate I's and O's and she will comply with plan. Denies any chest pain. Reason For Visit: HEART FAILURE Physical Exam Vital Signs: Temp Pulse Resp BP Pulse Ox 98.0 F 96 16 141/67 H 94 03/02/20 10:44 03/02/20 10:44 03/02/20 10:44 03/02/20 10:44 03/02/20 10:44 Intake & Output 03/01/20 03/02/20 03/03/20 06:59 06:59 06:59 Intake Total 1100 Output Total 950 Balance 150 Weight 93.5 kg General appearance: PRESENT: no acute distress, cooperative Neck exam: ABSENT: JVD Respiratory exam: PRESENT: crackles, unlabored. ABSENT: tachypnea, wheezes Cardiovascular exam: PRESENT: RRR, +S1, +S2, tachycardia GI/Abdominal exam: PRESENT: soft. ABSENT: rebound, rigid, tenderness Extremities exam: PRESENT: pedal edema Neurological exam: PRESENT: alert, awake, oriented to person, oriented to place, oriented to time Results Laboratory Results: 03/01/20 12:25 03/02/20 05:12 03/01/20 03/01/20 03/02/20 14:57 16:45 05:12 Sodium 131.7 L Potassium 4.4 Chloride 94 L Carbon Dioxide 28 Anion Gap 10 BUN 13 Creatinine 0.50 L Est GFR ( Amer) > 60 Glucose 79 Serum Osmolality 271 L Calcium 8.8 Magnesium 1.8 Urine Color YELLOW Urine Appearance SLIGHTLY-CLOUDY Urine pH 6.0 Ur Specific [place] 1.005 Urine Protein NEGATIVE Urine Glucose (UA) NEGATIVE Urine Ketones 20 H Urine Blood NEGATIVE Urine Nitrite NEGATIVE Ur Leukocyte Esterase TRACE H Urine WBC (Auto) 1 Urine RBC (Auto) 1 03/01/20 03/01/20 12:25 15:45 Troponin I 0.035 0.026 NT-Pro-B Natriuret Pep 1920 H Impressions: Chest CT 03/01/20 00:00 IMPRESSION: 1. Patchy right basilar consolidation and ground-glass at tenuation, likely infectious/inflammatory. Trace right pleural effusion. Few enlarged mediastinal nodes, likely reactive. 2. Stable enlarged pulmonary artery suggestive of elevated pulmonary arterial pressures. No overt pulmonary edema. 3. Emphysema. Venous Doppler Study 03/01/20 00:00 IMPRESSION: No evidence for acute deep venous thrombus from the common femoral to the popliteal veins. Chest X-Ray 03/01/20 10:48 IMPRESSION: Emphysematous change with ill-defined infrahilar right basilar opacities possibly atelectasis or infection. Stable enlarged cardiac silhouette. Assessment and Plan - Diagnosis (1) Right heart failure due to pulmonary hypertension Is this a current diagnosis for this admission?: Yes Plan: Acute on chronic. Secondary to severe pulmonary hypertension. I suspect type III PH from emphysema with chronic hypoxia. Uncertain if she is ever had RHC evaluation. TTE confirms severe pulmonary hypertension and signs of RV failure with left heart moreso unremarkable. We will continue diuresis. Maintain on oxygen. Monitor I's and O's strictly. Fluid restriction. Maintain on telemetry. Continue nitro patch Cardiology following. Recommendations appreciated. Will likely need outpatient follow-up with pulmonary hypertension clinic. (2) Acute and chronic respiratory failure with hypoxia Is this a current diagnosis for this admission?: Yes Plan: Uses 3.5 to 4 L nasal cannula at home due to COPD. Currently requiring oxygen. (3) Community acquired pneumonia of right lung Qualifiers: Lung location: lower lobe of lung Qualified Code(s): J18.9 - Pneumonia, unspecified organism Is this a current diagnosis for this admission?: Yes Plan: CT scan notes patchy opacities in the right lung base. No evidence of leukocytosis or fever but patient does have productive cough. Will cover empiri ava with ceftriaxone and azithromycin. COVID-19 test was negative. (4) Hyponatremia Is this a current diagnosis for this admission?: Yes Plan: Sodium of 128 on admission. Likely secondary to hypervolemia. Improving with diuresis. Continue to monitor metabolic panel. (5) Elevated troponin Is this a current diagnosis for this admission?: Yes Plan: Suspect type II NSTEMI from demand perfusion mismatch from CHF exacerbation. Flat trend. True ACS unlikely. (6) COPD (chronic obstructive pulmonary disease) Qualifiers: COPD type: emphysema Emphysema type: unspecified Qualified Code(s): J43.9 - Emphysema, unspecified Is this a current diagnosis for this admission?: Yes Plan: Oxygen supplementation as needed. Not acutely exacerbated. Nebulizers as needed. LABA/ICS. (7) Obesity Qualifiers: Obesity type: unspecified obesity type Obesity classification: adult class 2 (BMI 35 - 39.9) Serious obesity comorbidity presence: unspecified whether serious comorbidity present Body mass index: BMI 38.0-38.9 Qualified Code(s): E66.9 - Obesity, unspecified; Z68.38 - Body mass index (BMI) 38.0-38.9, adult Is this a current diagnosis for this admission?: Yes - Time Time Spent with patient: Less than 15 minutes
[2020-03-03 05:50] LABS: ANION GAP 10 (5-19); BLOOD UREA NITROGEN 20 mg/dL (7-20); CALCIUM 9.1 mg/dL (8.4-10.2); CARBON DIOXIDE 27 mmol/L (22-30); CHLORIDE 94 mmol/L (98-107); GLUCOSE 93 mg/dL (75-110); POTASSIUM 4.3 mmol/L (3.6-5.0)
[2020-03-03] MEDS ORDERED: LEVOTHYROXINE SODIUM 0.1 MG TABLET PO SCH (06:00)
[2020-03-03] MEDS ORDERED: LEVOTHYROXINE SODIUM 0.025 MG TABLET PO SCH (06:00)
[2020-03-03] MEDS ORDERED: ONDANSETRON HCL INJ/PF 4 MG/2 ML SDV IV PRN (08:00)
[2020-03-03] MEDS: NITROGLYCERIN 10 MG (0.4 MG/HR) PATCH.TD24 TD SCH (08:03)
--- NOTE | 2020-03-03 08:53 | PDOC PROGRESS REPORT ---
Subjective Progress Note for:: 03/03/20 Subjective:: HARSH PATE is a 79 year old female with history of hypertension, obesity, severe COPD on oxygen, stage III breast cancer status post chemotherapy and radiation in 1987 and 1988, hypothyroidism, chronic lower extremity edema/lymphedema, moderate to severe pulmonary hypertension on echocardiogram in March 2019, hypokalemia, asthma, diastolic dysfunction who returns called my office this morning complaining of increased in her LE edema associated with dyspnea at rest and during mild exertion. She denies neil chest pain and palpitations. She states that she is very compliant with diet and medications. 03/03/2020: The patient had an uneventful night and is found laying in her bed on her right side. She is easily arousable and specifically denies chest pain, shortness of breath, PND and orthopnea. Her main complaint continues to be severe cramps in the lower extremities. Her fluid balance is -1190 cc however it is inaccurate as she has been using the bathroom without measuring her urine. Ready sitting up in a chair without new cardiac complaints. Her telemetry shows episodes of sinus tachycardia. Physical exam on 03/03/20: GENERAL: Pleasant and conversational. Obese. Oriented x3 with normal mood. Mildly dyspneic with normal conversation. Well groomed and well developed. HEENT: Normocephalic, atraumatic. Pupils equal. Sclerae anicteric. Oropharynx moist. NECK: Difficult to evaluate for JVD due to her body habitus. No carotid bruits. LUNGS: Mild, bibasilar crackles. Normal respiratory effort without the use of accessory muscles or intercostal retractions. CARDIOVASCULAR: Regular rate and rhythm, normal S1 and S2 without murmurs, rubs, or gallops. PMI not displaced. EXTREMITIES: 2-3+ pitting edema bilaterally, no cyanosis, no clubbing. +2 pulses femoral and pedal pulses bilaterally. SKIN: No lesions or rashes. MUSCULOSKELETAL: No chest tenderness to palpation. NEUROLOGIC: Nonfocal. No gross sensory or motor deficits bilateral upper or lower extremities. Cardiac studies: Echocardiogram on 03/01/2020: -LV is normal in size. -EF 60 to 65%. -Diastolic function not adequately assessed. -Borderline RVE with moderately reduced systolic function. -Trace MR, moderate TR, moderate PI. -Severe pulmonary hypertension with pressures estimated between 88 and 93 mmHg. Echocardiogram on 03/25/19: -LV is normal in size. -Mild concentric LVH. -EF 60-65%. -Grade 2 diastolic dysfunction. -Markedly elevated filling pressures. -No wall motion normalities. -Mild MR, mild TR, mild PI. -Mildly dilated aortic root at 3.5 cm. -Severely elevated RVSP estimated between 63 and 68 mmHg after injection of Definity however the TR envelope is poorly defined therefore this measure might not be completely accurate. Reason For Visit: HEART FAILURE Physical Exam Vital Signs: Temp Pulse Resp BP Pulse Ox 97.8 F 80 18 131/61 H 96 03/02/20 23:47 03/03/20 02:00 03/02/20 23:47 03/02/20 23:47 03/02/20 23:47 Intake & Output 03/01/20 03/02/20 03/03/20 06:59 06:59 06:59 Intake Total 1560 Output Total 2750 Balance -1190 Weight 93.5 kg 91.8 kg Results Laboratory Results: 03/01/20 12:25 03/03/20 05:03 03/03/20 05:03 Sodium 130.7 L Potassium 4.3 Chloride 94 L Carbon Dioxide 27 Anion Gap 10 BUN 20 Creatinine 0.64 Est GFR ( Amer) > 60 Glucose 93 Calcium 9.1 Magnesium 1.9 03/01/20 03/01/20 12:25 15:45 Troponin I 0.035 0.026 NT-Pro-B Natriuret Pep 1920 H Impressions: Chest CT 03/01/20 00:00 IMPRESSION: 1. Patchy right basilar consolidation and ground-glass attenuation, likely infectious/inflammatory. Trace right pleural effusion. Few enlarged mediastinal nodes, likely reactive. 2. Stable enlarged pulmonary artery suggestive of elevated pulmonary arterial pressures. No overt pulmonary edema. 3. Emphysema. Venous Doppler Study 03/01/20 00:00 IMPRESSION: No evidence for acute deep venous thrombus from the common femoral to the popliteal veins. Chest X-Ray 03/01/20 10:48 IMPRESSION: Emphysematous change with ill-defined infrahilar right basilar opacities possibly atelectasis or infection. Stable enlarged cardiac silhouette. 03/01/20 12:25 03/03/20 05:03 MCV 85 fl (80-97) 03/01/20 12:25 MCH 29.3 pg (27.0-33.4) 03/01/20 12:25 MCHC 34.3 g/dL (32.0-36.0) 03/01/20 12:25 RDW 14.2 % (11.5-14.0) H 03/01/20 12:25 Seg Neutrophils % 65.7 % (42-78) 03/01/20 12:25 VBG pH 7.48 (7.30-7.42) H 03/01/20 12:53 VBG pCO2 35.9 mmHg (35-63) 03/01/20 12:53 VBG HCO3 25.9 mmol/L (20-32) 03/01/20 12:53 VBG Base Excess 2.5 mmol/L 03/01/20 12:53 Chloride 94 mmol/L (98-107) L 03/03/20 05:03 Carbon Dioxide 27 mmol/L (22-30) 03/03/20 05:03 Anion Gap 10 (5-19) 03/03/20 05:03 Est GFR ( Amer) > 60 (>60) 03/03/20 05:03 Glucose 93 mg/dL (75-110) 03/03/20 05:03 Serum Osmolality 271 mOsm/kg (275-301) L 03/01/20 16:45 Calcium 9.1 mg/dL (8.4-10.2) 03/03/20 05:03 Magnesium 1.9 mg/dL (1.6-2.3) 03/03/20 05:03 Total Bilirubin 0.6 mg/dL (0.2-1.3) 03/01/20 12:25 AST 33 U/L (14-36) 03/01/20 12:25 Alkaline Phosphatase 88 U/L (38-126) 03/01/20 12:25 Total Protein 5.9 g/dL (6.3-8.2) L 03/01/20 12:25 Albumin 3.5 g/dL (3.5-5.0) 03/01/20 12:25 Urine Color YELLOW 03/01/20 14:57 Urine Appearance SLIGHTLY-CLOUDY 03/01/20 14:57 Urine pH 6.0 (5.0-9.0) 03/01/20 14:57 Ur Specific [place] 1.005 03/01/20 14:57 Urine Protein NEGATIVE mg/dL (NEGATIVE) 03/01/20 14:57 Urine Glucose (UA) NEGATIVE mg/dL (NEGATIVE) 03/01/20 14:57 Urine Ketones 20 mg/dL (NEGATIVE) H 03/01/20 14:57 Urine Blood NEGATIVE (NEGATIVE) 03/01/20 14:57 Urine Nitrite NEGATIVE (NEGATIVE) 03/01/20 14:57 Ur Leukocyte Esterase TRACE (NEGATIVE) H 03/01/20 14:57 Urine WBC (Auto) 1 /HPF 03/01/20 14:57 Urine RBC (Auto) 1 /HPF 03/01/20 14:57 03/01/20 03/01/20 12:25 15:45 Troponin I 0.035 0.026 NT-Pro-B Natriuret Pep 1920 H Current Medication List Generic Name Dose Route Start Last Admin Trade Name Freq PRN Reason Stop Dose Admin Acetaminophen 650 mg 03/01/20 15:55 03/01/20 16:53 Tylenol 325 Mg Tablet PO 03/31/20 15:54 650 mg Q4HP PRN Administration pain or temp greater than 101F Azithromycin 500 mg 03/02/20 10:00 03/02/20 09:45 Zithromax 250 Mg Tablet PO 03/09/20 09:59 500 mg DAILY RATNA Administration Cyclobenzaprine HCl 5 mg 03/02/20 14:22 Flexeril 10 Mg Tablet PO 04/01/20 14:21 Q8HP PRN MUSCLE SPASMS Enoxaparin Sodium 40 mg 03/02/20 10:00 03/02/20 09:45 Lovenox Inj 40 Mg/0.4 Ml Disp.Syrin SUBCUT 04/01/20 09:59 40 mg DAILY RATNA Administration Fluticasone/Vilanterol 1 inh 03/03/20 10:00 Breo 200-25 Mcg Ellipta 14 Dose/Dpi IH 04/02/20 09:59 DAILY RATNA Furosemide 60 mg 03/01/20 18:00 03/02/20 17:30 Lasix Inj/Pf 100 Mg/10 Ml Sdv IV 03/31/20 17:59 60 mg BID RATNA Administration Ceftriaxone Sodium/Dextrose 2 gm in 50 mls @ 100 mls/hr 03/02/20 10:00 03/02/20 10:47 Rocephin Rtu 2 Gm/D5w 50 Ml Premix Bag IV 03/09/20 09:59 Infused DAILY RATNA Infusion Levalbuterol HCl 1.25 mg 03/01/20 16:04 03/02/20 08:20 Xopenex Neb 1.25 Mg/3 Ml Ampul NEB 03/31/20 16:03 1.25 mg RTQ6HP PRN Administration SHORTNESS OF BREATH Levothyroxine Sodium 0.1 mg 03/03/20 06:00 03/03/20 05:47 Synthroid 0.1 Mg Tablet PO 04/02/20 05:59 0.1 mg Q6AM RATNA Administration Levothyroxine Sodium 0.025 mg 03/03/20 06:00 03/03/20 05:47 Synthroid 0.025 Mg Tablet PO 04/02/20 05:59 0.025 mg Q6AM RATNA Administration Lisinopril 10 mg 03/02/20 10:00 03/02/20 09:44 Prinivil 10 Mg Tablet PO 04/01/20 09:59 10 mg DAILY RATNA Administration Magnesium Oxide 800 mg 03/02/20 10:00 03/02/20 17:29 Mag-Ox 400 Mg Tablet PO 04/01/20 09:59 800 mg BID RATNA Administration Nitroglycerin 1 each 03/02/20 09:00 03/02/20 09:43 Nitro-Dur 10 Mg (0.4mg/Hr) Transdermal Patch TD 04/01/20 08:59 1 each QAM RATNA Administration Ondansetron HCl 4 mg 03/01/20 15:55 Zofran Inj/Pf 4 Mg/2 Ml Sdv IV 03/31/20 15:54 Q8HP PRN FOR NAUSEA/VOMITING Potassium Chloride 20 meq 03/01/20 22:00 03/02/20 21:30 Klor-Con 10 Meq Tablet Er PO 03/31/20 21:59 20 meq Q12 RATNA Administration Sodium Chloride 2.5 ml 03/01/20 22:00 03/03/20 05:47 Saline Flush 2.5 Ml Monoject Prefil Syrin IV 03/31/20 21:59 2.5 ml Q8 RATNA Administration Tramadol HCl 50 mg 03/01/20 16:29 03/01/20 18:47 Ultram 50 Mg Tablet PO 03/08/20 16:28 50 mg Q8HP PRN Administration FOR BREAKTHROUGH PAIN Discontinued Medications Generic Name Dose Route Start Last Admin Trade Name Lester PRN Reason Stop Dose Admin Diazepam 2 mg 03/01/20 14:36 03/01/20 14:45 Valium 2 Mg Tablet PO 03/01/20 14:37 2 mg NOW ONE Administration Furosemide 10 mg 03/01/20 14:38 03/01/20 14:44 Lasix Inj/Pf 20 Mg/2 Ml Sdv IV 03/01/20 14:39 10 mg NOW ONE Administration Furosemide 60 mg 03/01/20 22:00 03/01/20 21:57 Lasix Inj/Pf 100 Mg/10 Ml Sdv IV 03/01/20 22:01 60 mg NOW ONE Administration Levothyroxine Sodium 0.125 mg 03/02/20 09:00 03/02/20 09:43 Synthroid 0.05 Mg Tablet PO 04/01/20 08:59 0.125 mg Q6AM RATNA Administration Ondansetron HCl 4 mg 03/01/20 11:17 03/01/20 12:14 Zofran Inj/Pf 4 Mg/2 Ml Sdv IV 03/01/20 11:18 Not Given NOW ONE Assessment & Plan - Diagnosis (1) Acute on chronic diastolic heart failure Is this a current diagnosis for this admission?: Yes Plan: She feels better however need more diuresis. She continues to be tachycardic which I believe is a function of her pulmonary disease as well as her heart failure. I do believe it is contributing to her feeling of shortness of breath when walking therefore I will start metoprolol tartrate today. Recommendations: -Start metoprolol tartrate 25 mg twice daily. -Continue with diuresis. -Replace electrolytes as needed. -Restrict fluids to 1500 ml daily. -Strict intake and output. -Low sodium diet. -Daily BMP. (2) Elevated troponin Is this a current diagnosis for this admission?: Yes Plan: Her initial troponin is in the indeterminate range and is now downtrending. The patient is free of angina and angina equivalents. This elevation may be just secondary to LV strain from both HF and her pulmonary hypertension. Recommendations: -Continue trending cardiac enzymes. (3) COPD (chronic obstructive pulmonary disease) Qualifiers: COPD type: emphysema Emphysema type: unspecified Qualified Code(s): J43.9 - Emphysema, unspecified Is this a current diagnosis for this admission?: Yes Plan: Continue with outpatient management. Recommendations: -We will defer further management to primary team. (4) Pulmonary hypertension Plan: The patient has worsening pulmonary hypertension which is now in the severe range with estimated pressures up to 93 mmHg by echocardiogram yesterday. She is followed by Dr. Symone Somers with [facility] however her work-up to include VQ scan and sleep study was put on hold due to COVID-19 restrictions. I did mention to her the possibility of a consult to the pulmonary hypertension clinic at [facility] due to the fact that, despite her age, she is very active and functional and wishes to remain the same. Recommendations: -Continue with diuresis. -She will continue to follow-up with Dr. Somers in the outpatient setting. -We will consider an outpatient consult to the pulmonary hypertension clinic at the [facility] after discussing the case with Dr. Somers.
[2020-03-03] MEDS: LISINOPRIL 10 MG TABLET PO SCH (09:49)
[2020-03-03] MEDS: POTASSIUM CHLORIDE 10 MEQ TABLET.ER PO SCH (09:49)
[2020-03-03] MEDS: MAGNESIUM OXIDE 400 MG TABLET PO SCH (09:49)
[2020-03-03] MEDS: FUROSEMIDE INJ/PF 100 MG/10 ML SDV IV SCH (09:50)
[2020-03-03] MEDS: ENOXAPARIN SODIUM INJ 40 MG/0.4 ML DISP.SYRIN SUBCUT SCH (09:50)
[2020-03-03] MEDS: AZITHROMYCIN 250 MG TABLET PO SCH (09:50)
[2020-03-03] MEDS: CEFTRIAXONE 2 GM/D5W RTU 2 GM/50 ML RTUPB IV SCH (09:50)
[2020-03-03] MEDS ORDERED: FLUTICASONE/VILANTEROL 200-25 MCG/DOSE IH SCH (10:00)
[2020-03-03] MEDS ORDERED: METOPROLOL TARTRATE 25 MG TABLET PO SCH (10:00)
[2020-03-03 12:18] VITALS: BP 110/64
--- NOTE | 2020-03-03 15:39 | PDOC DISCHARGE SUMMARY ---
Impression - Admit/DC Date/PCP Admission Date/Primary Care Provider: 03/01/20 15:14 TRENT JENNINGS MD Discharge Date: 03/03/20 - Discharge Diagnosis (1) Right heart failure due to pulmonary hypertension Is this a current diagnosis for this admission?: Yes (2) Acute and chronic respiratory failure with hypoxia Is this a current diagnosis for this admission?: Yes (3) Community acquired pneumonia of right lung Is this a current diagnosis for this admission?: Yes (4) Hyponatremia Is this a current diagnosis for this admission?: Yes (5) Elevated troponin Is this a current diagnosis for this admission?: Yes (6) COPD (chronic obstructive pulmonary disease) Is this a current diagnosis for this admission?: Yes (7) Obesity Is this a current diagnosis for this admission?: Yes - Additional Information Resuscitation Status: Full Code Discharge Diet: Cardiac Discharge Activity: Activity As Tolerated, Balance Activity w/Rest, Weigh Daily Referrals: AMAN SOMERS MD [NO LOCAL MD] - 03/10/20 10:00 am Prescriptions: Cefdinir 300 mg PO Q12 7 Days capsule Cyclobenzaprine HCl [Flexeril 10 mg Tablet] 5 mg PO Q8HP PRN #10 tablet PRN Reason: Potassium Chloride [Klor-Con 10 Meq Tablet ER] 20 meq PO BID 20 Days Furosemide [Lasix 20 mg Tablet] 40 mg PO BID 20 Days Magnesium Oxide [Mag-Ox 400 mg Tablet] 400 mg PO DAILY #20 tablet Azithromycin [Zithromax 250 mg Tablet] 250 mg PO DAILY 3 Days #3 tablet Home Medications: Albuterol Sulfate [Proair HFA] 2 puff IH Q6HP PRN 01/18/17 Levothyroxine Sodium [Tirosint] 137 mcg PO Q6AM 03/01/20 Lisinopril [Prinivil 10 mg Tablet] 10 mg PO DAILY 03/01/20 Nitroglycerin [Nitro-Dur 10 mg (0.4MG/Hr) Transdermal Patch] 1 patch TD QAM 03/01/20 Azithromycin [Zithromax 250 mg Tablet] 250 mg PO DAILY 3 Days #3 tablet 03/03/20 Cefdinir 300 mg PO Q12 7 Days capsule 03/03/20 Cyclobenzaprine HCl [Flexeril 10 mg Tablet] 5 mg PO Q8HP PRN #10 tablet 03/03/20 Furosemide [Lasix 20 mg Tablet] 40 mg PO BID 20 Days 03/03/20 Magnesium Oxide [Mag-Ox 400 mg Tablet] 400 mg PO DAILY #20 tablet 03/03/20 Potassium Chloride [Klor-Con 10 Meq Tablet ER] 20 meq PO BID 20 Days 03/03/20 History of Present Illiness History of Present Illness: HARSH PATE is a 79 year old female with history of CHF, COPD on 3.5 to 4 L, interstitial lung disease, who presents to the hospital with complaints of worsening shortness of breath over the past 3 to 4 days. Her dyspnea is worse on exertion and no significant alleviating factors. Admits to orthopnea. Denies PND. Accompanied by dry chronic cough. Also complains of worsening lower extremity swelling bilaterally. States she takes Lasix at home twice a day and has not been missing her any of her pills. She follows with Dr. Alejandro Duarte who was contacted in the ER upon presentation. Patient denies any chest pain lightheadedness or dizziness. Admits to an episode of diaphoresis. She does not ambulate much and relies on neighbors to bring groceries for her and does not get around much. Denies sick contacts but states that she does leave in the same place with other people were out and about. Hospital Course Hospital Course: Patient was admitted to the hospital for evaluation of shortness of breath. On examination she was noted to be fluid overloaded with crackles, lower extremity swelling and JVD. BNP was elevated. Echocardiogram revealed right heart failure with severe pulmonary hypertension. Patient has known emphysema which is advanced and chronic hypoxic respiratory failure on 3.5 to 4 L nasal cannula at home. There was also mild acute respiratory failure from CHF. Patient was started on diuresis with IV Lasix. Cardiology was consulted. I believe patient is severe pulmonary hypertension is from patient's longstanding advanced emphysema and chronic hypoxia which is now leading to cor pulmonale. With adequate diuresis and restarting her nitroglycerin patch, patient symptoms i mproved significantly. She was also treated for pneumonia and started on antibiotics. Patient was discharged on an increased dose of Lasix and antibiotics. 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 Physical Exam Vital Signs: Temp Pulse Resp BP Pulse Ox 98.2 F 69 16 110/64 97 03/03/20 12:12 03/03/20 12:12 03/03/20 12:12 03/03/20 12:12 03/03/20 12:12 Intake & Output 03/02/20 03/03/20 03/04/20 06:59 06:59 06:59 Intake Total 1560 50 Output Total 2750 Balance -1190 50 Weight 93.5 kg 91.8 kg General appearance: PRESENT: no acute distress, cooperative Neck exam: ABSENT: JVD Respiratory exam: PRESENT: crackles - Very minimal, unlabored. ABSENT: accessory muscle use, retraction, tachypnea Extremities exam: ABSENT: pedal edema Neurological exam: PRESENT: alert, awake Results Laboratory Results: WBC 6.1 10^3/uL (4.0-10.5) 03/01/20 12:25 RBC 4.57 10^6/uL (3.72-5.28) 03/01/20 12:25 Hgb 13.4 g/dL (12.0-15.5) 03/01/20 12:25 Hct 39.0 % (36.0-47.0) 03/01/20 12:25 MCV 85 fl (80-97) 03/01/20 12:25 MCH 29.3 pg (27.0-33.4) 03/01/20 12:25 MCHC 34.3 g/dL (32.0-36.0) 03/01/20 12:25 RDW 14.2 % (11.5-14.0) H 03/01/20 12:25 Plt Count 221 10^3/uL (150-450) 03/01/20 12:25 Lymph % (Auto) 13.0 % (13-45) 03/01/20 12:25 [place] % (Auto) 12.9 % (3-13) 03/01/20 12:25 Eos % (Auto) 7.7 % (0-6) H 03/01/20 12:25 Baso % (Auto) 0.7 % (0-2) 03/01/20 12:25 Absolute Neuts (auto) 4.0 10^3/uL (1.7-8.2) 03/01/20 12:25 Absolute Lymphs (auto) 0.8 10^3/uL (0.5-4.7) 03/01/20 12:25 Absolute Monos (auto) 0.8 10^3/uL (0.1-1.4) 03/01/20 12:25 Absolute Eos (auto) 0.5 10^3/uL (0.0-0.6) 03/01/20 12:25 Absolute Basos (auto) 0.0 10^3/uL (0.0-0.2) 03/01/20 12:25 Seg Neutrophils % 65.7 % (42-78) 03/01/20 12:25 VBG pH 7.48 (7.30-7.42) H 03/01/20 12:53 VBG pCO2 35.9 mmHg (35-63) 03/01/20 12:53 VBG HCO3 25.9 mmol/L (20-32) 03/01/20 12:53 VBG Base Excess 2.5 mmol/L 03/01/20 12:53 Sodium 130.7 mmol/L (137-145) L 03/03/20 05:03 Potassium 4.3 mmol/L (3.6-5.0) 03/03/20 05:03 Chloride 94 mmol/L (98-107) L 03/03/20 05:03 Carbon Dioxide 27 mmol/L (22-30) 03/03/20 05:03 Anion Gap 10 (5-19) 03/03/20 05:03 BUN 20 mg/dL (7-20) 03/03/20 05:03 Creatinine 0.64 mg/dL (0.52-1.25) 03/03/20 05:03 Est GFR ( Amer) > 60 (>60) 03/03/20 05:03 Est GFR (MDRD) Non-Af > 60 (>60) 03/03/20 05:03 Glucose 93 mg/dL (75-110) 03/03/20 05:03 Serum Osmolality 271 mOsm/kg (275-301) L 03/01/20 16:45 Calcium 9.1 mg/dL (8.4-10.2) 03/03/20 05:03 Magnesium 1.9 mg/dL (1.6-2.3) 03/03/20 05:03 Total Bilirubin 0.6 mg/dL (0.2-1.3) 03/01/20 12:25 Direct Bilirubin 0.2 mg/dL (0.0-0.4) 03/01/20 12:25 Neonat Total Bilirubin Not Reportable 03/01/20 12:25 Neonat Direct Bilirubin Not Reportable 03/01/20 12:25 Neonat Indirect Bili Not Reportable 03/01/20 12:25 AST 33 U/L (14-36) 03/01/20 12:25 ALT 28 U/L (<35) 03/01/20 12:25 Alkaline Phosphatase 88 U/L (38-126) 03/01/20 12:25 Troponin I 0.026 ng/mL 03/01/20 15:45 NT-Pro-B Natriuret Pep 1920 pg/mL (<450) H 03/01/20 12:25 Total Protein 5.9 g/dL (6.3-8.2) L 03/01/20 12:25 Albumin 3.5 g/dL (3.5-5.0) 03/01/20 12:25 Urine Color YELLOW 03/01/20 14:57 Urine Appearance SLIGHTLY-CLOUDY 03/01/20 14:57 Urine pH 6.0 (5.0-9.0) 03/01/20 14:57 Ur Specific [place] 1.005 03/01/20 14:57 Urine Protein NEGATIVE mg/dL (NEGATIVE) 03/01/20 14:57 Urine Glucose (UA) NEGATIVE mg/dL (NEGATIVE) 03/01/20 14:57 Urine Ketones 20 mg/dL (NEGATIVE) H 03/01/20 14:57 Urine Blood NEGATIVE (NEGATIVE) 03/01/20 14:57 Urine Nitrite NEGATIVE (NEGATIVE) 03/01/20 14:57 Urine Bilirubin NEGATIVE (NEGATIVE) 03/01/20 14:57 Urine Urobilinogen NEGATIVE mg/dL (<2.0) 03/01/20 14:57 Ur Leukocyte Esterase TRACE (NEGATIVE) H 03/01/20 14:57 Urine WBC (Auto) 1 /HPF 03/01/20 14:57 Urine RBC (Auto) 1 /HPF 03/01/20 14:57 U Hyaline Cast (Auto) 1 /LPF 03/01/20 14:57 Urine Bacteria (Auto) TRACE /HPF 03/01/20 14:57 Squamous Epi Cells Auto 1 /HPF 03/01/20 14:57 Urine Mucus (Auto) RARE /LPF 03/01/20 14:57 Urine Ascorbic Acid 20 (NEGATIVE) H 03/01/20 14:57 COVID-19 Source Cancelled 03/01/20 16:06 COVID-19 ([facility]) Cancelled 03/01/20 16:06 SARS-CoV-2 (PCR) NEGATIVE (NEGATIVE) 03/01/20 16:06 03/01/20 03/01/20 12:25 15:45 Troponin I 0.035 0.026 NT-Pro-B Natriuret Pep 1920 H Impressions: Chest CT 03/01/20 00:00 IMPRESSION: 1. Patchy right basilar consolidation and ground-glass attenuation, likely infectious/inflammatory. Trace right pleural effusion. Few enlarged mediastinal nodes, likely reactive. 2. Stable enlarged pulmonary artery suggestive of elevated pulmonary arterial pressures. No overt pulmonary edema. 3. Emphysema. Venous Doppler Study 03/01/20 00:00 IMPRESSION: No evidence for acute deep venous thrombus from the common femoral to the popliteal veins. Chest X-Ray 03/01/20 10:48 IMPRESSION: Emphysematous change with ill-defined infrahilar right basilar opacities possibly atelectasis or infection. Stable enlarged cardiac silhouette. Plan Time Spent: Less than 30 Minutes Stroke Is this a Stroke Patient?: No Acute Heart Failure - Is this a Heart Failure Patient?: Yes Documentation of LVEF assessment?: Yes LVEF: LVEF Greater Than 40% Anticoagulant Therapy: N/A
== END 2020-03-03 14:02 | disposition home or self-care (01) | DRG 291 ==
LOC: ER 10:36 → EH 15:14 → 4N 19:17
PROVIDERS: ADMIT Internal Medicine; ATTEND Internal Medicine
DX: I11.0 Hypertensive heart disease with heart failure (principal); J96.21 Acute and chronic respiratory failure with hypoxia; J18.9 Pneumonia, unspecified organism; E87.1 Hypo-osmolality and hyponatremia; I27.29 Other secondary pulmonary hypertension; I27.81 Cor pulmonale (chronic); Z99.81 Dependence on supplemental oxygen; I48.0 Paroxysmal atrial fibrillation; I50.33 Acute on chronic diastolic (congestive) heart failure; E66.9 Obesity, unspecified; E03.9 Hypothyroidism, unspecified; E87.6 Hypokalemia; M06.9 Rheumatoid arthritis, unspecified; M79.7 Fibromyalgia; Z20.828 Contact with and (suspected) exposure to other viral communicable diseases; J43.9 Emphysema, unspecified; M54.9 Dorsalgia, unspecified; G89.29 Other chronic pain; Z79.899 Other long term (current) drug therapy; Z85.3 Personal history of malignant neoplasm of breast; Z82.49 Family history of ischemic heart disease and other diseases of the circulatory system; Z79.82 Long term (current) use of aspirin; Z91.048 Other nonmedicinal substance allergy status; Z92.3 Personal history of irradiation; Z92.21 Personal history of antineoplastic chemotherapy
CPT/HCPCS: 36415; 71045; 71250; 80048; 80053; 81001; 82803; 83735; 83880; 83930; 84484; 85025; 87040; 87077; 87150; 87186; 87635; 93005; 93010; 93306; 93970; 94640; 99285; J0696; J1650; J1940; J3490